=== PATIENT | female | born 1935 | race Caucasian/White ===

== ENCOUNTER 2017-11-24 15:18 | Emergency (ER) | payer MEDICARE ==
[2017-11-24 18:59] LABS: AMMONIA < 10 uMOL/L (<32)
[2017-11-24 19:04] LABS: ACETAMINOPHEN LEVEL < 2.0 UG/ML (10.0-30.0); ALBUMIN 3.7 GM/DL (3.2-5.2); ALBUMIN/GLOBULIN RATIO 1.12 (1.00-1.93); ALKALINE PHOSPHATASE 97 U/L (45-117); ALT/SGPT 24 U/L (12-78); ANION GAP 6 MEQ/L (8-16); AST/SGOT 23 U/L (7-37); BILIRUBIN,DIRECT < 0.1 MG/DL (0.0-0.2); BILIRUBIN,TOTAL 0.3 MG/DL (0.2-1.0); BLOOD UREA NITROGEN 26 MG/DL (7-18); CALCIUM LEVEL 8.5 MG/DL (8.8-10.2); CARBON DIOXIDE LEVEL 27 MEQ/L (21-32); CHLORIDE LEVEL 106 MEQ/L (98-107); CK-MB VALUE MASS 1.6 NG/ML (<3.6); CPK CREATINE PHOSPHOKINASE 59 U/L (26-192); CREATININE FOR GFR 0.81 MG/DL (0.55-1.30); GLOMERULAR FILTRATION RATE > 60.0 (>32); GLUCOSE, FASTING 85 MG/DL (70-100); MB/CK RELATIVE INDEX 2.71 (< OR =4); POTASSIUM SERUM 4.7 MEQ/L (3.5-5.1); SALICYLATE LEVEL < 1.7 MG/DL (5.0-30.0); SODIUM LEVEL 139 MEQ/L (136-145); TROPONIN I < 0.02 NG/ML (< 0.10)
[2017-11-24 19:07] LABS: AMORPHOUS SEDIMENT RFX SMALL (NEGATIVE); KETONE, URINE AUTO RFX NEGATIVE (NEGATIVE); LEUKOCYTE ESTERASE UR AUTO RFX NEGATIVE (NEGATIVE); NITRITE, URINE AUTO RFX NEGATIVE (NEGATIVE); RBC, URINE AUTO RFX 11 /HPF (0-3); SPECIFIC GRAVITY UR AUTO RFX 1.006 (1.002-1.035); SQUAM EPITHELIAL CELL UR AURFX 0 /HPF (0-6); WBC, URINE AUTO RFX 3 /HPF (0-3)
[2017-11-24 19:09] LABS: ETHYL ALCOHOL (ETHANOL) < 0.003 % (0.000-0.010)
[2017-11-24 19:26] LABS: AMPHETAMINES LEVEL URINE NEGATIVE (NEGATIVE); BARBITURATES URINE NEGATIVE (NEGATIVE); BENZODIAZEPINES URINE NEGATIVE (NEGATIVE); CANNABINOIDS URINE NEGATIVE (NEGATIVE); COCAINE METABOLITE URINE NEGATIVE (NEGATIVE); METHADONE URINE NEGATIVE (NEGATIVE); OPIATES URINE NEGATIVE (NEGATIVE); PHENCYCLIDINE URINE NEGATIVE (NEGATIVE)
== END 2017-11-24 19:47 | disposition home or self-care (01) ==
LOC: M ED 15:18
DX: F03.90 Unspecified dementia, unspecified severity, without behavioral disturbance, psychotic disturbance, mood disturbance, and anxiety (principal); I10 Essential (primary) hypertension; K21.9 Gastro-esophageal reflux disease without esophagitis; E07.9 Disorder of thyroid, unspecified; D64.9 Anemia, unspecified; Z79.899 Other long term (current) drug therapy; Z79.82 Long term (current) use of aspirin
CPT/HCPCS: 70450

== ENCOUNTER → 2017-12-11 | Outpatient (REF) | payer MEDICARE ==
[2017-12-11 16:15] LABS: ALBUMIN 3.6 GM/DL (3.2-5.2); ALBUMIN/GLOBULIN RATIO 1.13 (1.00-1.93); ALKALINE PHOSPHATASE 92 U/L (45-117); ALT/SGPT 24 U/L (12-78); ANION GAP 4 MEQ/L (8-16); AST/SGOT 19 U/L (7-37); BILIRUBIN,TOTAL 0.4 MG/DL (0.2-1.0); BLOOD UREA NITROGEN 26 MG/DL (7-18); CALCIUM LEVEL 8.5 MG/DL (8.8-10.2); CARBON DIOXIDE LEVEL 31 MEQ/L (21-32); CHLORIDE LEVEL 107 MEQ/L (98-107); CREATININE FOR GFR 0.78 MG/DL (0.55-1.30); FERRITIN 64 NG/ML (8-252); FREE T4 1.68 NG/DL (0.76-1.46); GLOMERULAR FILTRATION RATE > 60.0 (>32); GLUCOSE, FASTING 80 MG/DL (70-100); IRON (FE) 90 UG/DL (50-170); PERCENT SATURATION 28.9 % (13.2-45.0); SODIUM LEVEL 142 MEQ/L (136-145); THYROID STIMULATING HORMONE 0.032 uIU/ML (0.358-3.740); TOTAL IRON BINDING CAPACITY 311 UG/DL (250-450); TOTAL PROTEIN 6.8 GM/DL (6.4-8.2)
[2017-12-11 18:48] LABS: BASO # 0.1 10^3/uL (0.0-0.2); EOS # 0.1 10^3/uL (0.0-0.50); EOS % 2.3 % (0.0-3.0); HEMATOCRIT 48.1 % (36.0-47.0); HEMOGLOBIN 15.2 g/dl (12.0-15.5); IMMATURE GRANULOCYTE % 0.6 % (0-3.0); LYMPH # 0.9 10^3/uL (1.5-4.5); LYMPH % 18.9 % (24.0-44.0); MEAN CORPUSCULAR HGB CONC 31.6 g/dl (32.0-36.5); MEAN CORPUSCULAR VOLUME 88.7 fl (80.0-96.0); MONO # 0.6 10^3/uL (0.0-0.8); MONO % 11.3 % (0.0-5.0); NEUTROPHILS # 3.2 10^3/uL (1.8-7.7); NEUTROPHILS % 65.9 % (36.0-66.0); PLATELET COUNT, AUTOMATED 232 10^3/uL (150-450); RED BLOOD COUNT 5.42 10^6/uL (4.00-5.40); RED CELL DISTRIBUTION WIDTH 17.2 % (11.5-14.5); WHITE BLOOD COUNT 4.9 10^3/uL (4.0-10.0)
== END ==
LOC: M SFHCPLAZ 12:09
DX: D50.9 Iron deficiency anemia, unspecified (principal); E03.8 Other specified hypothyroidism; I69.319 Unspecified symptoms and signs involving cognitive functions following cerebral infarction
CPT/HCPCS: 83550

== ENCOUNTER → 2018-01-05 | Outpatient (CLI) | payer MEDICARE | LOC: M WHC 14:15 | DX: E83.51 Hypocalcemia (principal); M81.0 Age-related osteoporosis without current pathological fracture | CPT/HCPCS: 77080 ==

== ENCOUNTER → 2018-02-26 | Outpatient (REF) | payer MEDICARE ==
[2018-02-26 12:44] LABS: FREE T4 1.63 NG/DL (0.76-1.46); THYROID STIMULATING HORMONE 0.017 uIU/ML (0.358-3.740)
== END ==
LOC: M SFHCPLAZ 08:40
DX: E03.8 Other specified hypothyroidism (principal)
CPT/HCPCS: 84443

== ENCOUNTER → 2018-04-19 | Outpatient (REF) | payer MEDICARE, MEDICAID ==
[2018-04-19 16:10] LABS: BASO % 0.7 % (0.0-1.0); EOS # 0.2 10^3/uL (0.0-0.50); EOS % 2.7 % (0.0-3.0); HEMATOCRIT 48.6 % (36.0-47.0); HEMOGLOBIN 15.4 g/dl (12.0-15.5); IMMATURE GRANULOCYTE % 0.5 % (0-3.0); LYMPH # 0.8 10^3/uL (1.5-4.5); LYMPH % 14.7 % (24.0-44.0); MEAN CORPUSCULAR HEMOGLOBIN 29.1 pg (27.0-33.0); MEAN CORPUSCULAR HGB CONC 31.7 g/dl (32.0-36.5); MEAN CORPUSCULAR VOLUME 91.9 fl (80.0-96.0); MONO # 0.6 10^3/uL (0.0-0.8); MONO % 10.9 % (0.0-5.0); NEUTROPHILS # 3.9 10^3/uL (1.8-7.7); NEUTROPHILS % 70.5 % (36.0-66.0); PLATELET COUNT, AUTOMATED 228 10^3/uL (150-450); RED BLOOD COUNT 5.29 10^6/uL (4.00-5.40); RED CELL DISTRIBUTION WIDTH 13.4 % (11.5-14.5); WHITE BLOOD COUNT 5.6 10^3/uL (4.0-10.0)
[2018-04-19 16:18] LABS: ALBUMIN 3.4 GM/DL (3.2-5.2); ALKALINE PHOSPHATASE 107 U/L (45-117); ALT/SGPT 27 U/L (12-78); ANION GAP 6 MEQ/L (8-16); AST/SGOT 24 U/L (7-37); BILIRUBIN,TOTAL 0.4 MG/DL (0.2-1.0); BLOOD UREA NITROGEN 23 MG/DL (7-18); CALCIUM LEVEL 7.9 MG/DL (8.8-10.2); CARBON DIOXIDE LEVEL 30 MEQ/L (21-32); CHLORIDE LEVEL 107 MEQ/L (98-107); CREATININE FOR GFR 0.87 MG/DL (0.55-1.30); GLOMERULAR FILTRATION RATE > 60.0 (>32); GLUCOSE, FASTING 76 MG/DL (70-100); INR 0.93; POTASSIUM SERUM 4.6 MEQ/L (3.5-5.1); PROTHROMBIN TIME 12.5 SECONDS (12.1-14.4); SODIUM LEVEL 143 MEQ/L (136-145); TOTAL PROTEIN 6.8 GM/DL (6.4-8.2)
[2018-04-19 16:19] LABS: PARTIAL THROMBOPLASTIN TIME 30.5 SECONDS (25.4-37.6)
== END ==
LOC: M SFHCPLAZ 12:22
DX: Z01.818 Encounter for other preprocedural examination (principal); H26.9 Unspecified cataract
CPT/HCPCS: 80053

== ENCOUNTER → 2018-05-28 | Outpatient (REF) | payer MEDICARE, MEDICAID ==
[2018-05-28 12:08] LABS: FREE T4 1.47 NG/DL (0.76-1.46); THYROID STIMULATING HORMONE 0.799 uIU/ML (0.358-3.740)
== END ==
LOC: M SFHCPLAZ 08:13
DX: E03.8 Other specified hypothyroidism (principal)
CPT/HCPCS: 84443

== ENCOUNTER 2018-06-01 19:21 | Emergency (ER) | payer MEDICARE, MEDICAID ==
[~2018-06-01] VITALS: Ht 157.5 cm; Wt 77.3 kg
[~2018-06-01 19:21] MED LIST: ASPI1TAB PO; FERR22EL PO; LEVO100T5 PO; OMEP20CA3 PO
[2018-06-01] MEDS ORDERED: D 50CAP PO (20:08)
[2018-06-01] MEDS ORDERED: RISP2TAB32 (20:08)
[2018-06-01 21:49] VITALS: BP 132/82
== END 2018-06-01 21:50 | disposition home or self-care (01) ==
LOC: M ED 19:21
DX: F43.0 Acute stress reaction (principal); E03.9 Hypothyroidism, unspecified; Z91.14 Patient's other noncompliance with medication regimen
CPT/HCPCS: 36415; 80053; 82728; 83550; 84439; 84443; 85025; 99284; G0463

== ENCOUNTER → 2018-06-01 | Outpatient (REF) | payer MEDICARE, MEDICAID ==
[2018-06-01 15:50] LABS: BASO # 0.1 10^3/uL (0.0-0.2); BASO % 0.8 % (0.0-1.0); EOS # 0.1 10^3/uL (0.0-0.50); EOS % 1.6 % (0.0-3.0); HEMATOCRIT 43.2 % (36.0-47.0); HEMOGLOBIN 14.2 g/dl (12.0-15.5); IMMATURE GRANULOCYTE % 0.6 % (0-3.0); LYMPH % 15.3 % (24.0-44.0); MEAN CORPUSCULAR HEMOGLOBIN 29.6 pg (27.0-33.0); MEAN CORPUSCULAR HGB CONC 32.9 g/dl (32.0-36.5); MONO # 0.8 10^3/uL (0.0-0.8); MONO % 12.4 % (0.0-5.0); NEUTROPHILS # 4.4 10^3/uL (1.8-7.7); NEUTROPHILS % 69.3 % (36.0-66.0); PLATELET COUNT, AUTOMATED 192 10^3/uL (150-450); RED CELL DISTRIBUTION WIDTH 13.4 % (11.5-14.5); WHITE BLOOD COUNT 6.3 10^3/uL (4.0-10.0)
[2018-06-01 16:27] LABS: ALBUMIN 3.4 GM/DL (3.2-5.2); ALKALINE PHOSPHATASE 104 U/L (45-117); ALT/SGPT 20 U/L (12-78); ANION GAP 9 MEQ/L (8-16); AST/SGOT 16 U/L (7-37); BILIRUBIN,TOTAL 0.3 MG/DL (0.2-1.0); BLOOD UREA NITROGEN 28 MG/DL (7-18); CALCIUM LEVEL 8.2 MG/DL (8.8-10.2); CARBON DIOXIDE LEVEL 27 MEQ/L (21-32); CHLORIDE LEVEL 107 MEQ/L (98-107); CREATININE FOR GFR 1.03 MG/DL (0.55-1.30); FERRITIN 14 NG/ML (8-252); FREE T4 1.25 NG/DL (0.76-1.46); GLOMERULAR FILTRATION RATE 54.6 (>32); GLUCOSE, FASTING 74 MG/DL (70-100); IRON (FE) 56 UG/DL (50-170); PERCENT SATURATION 17.5 % (13.2-45.0); POTASSIUM SERUM 4.7 MEQ/L (3.5-5.1); SODIUM LEVEL 143 MEQ/L (136-145); THYROID STIMULATING HORMONE 0.466 uIU/ML (0.358-3.740); TOTAL IRON BINDING CAPACITY 320 UG/DL (250-450); TOTAL PROTEIN 6.5 GM/DL (6.4-8.2)
== END ==
LOC: M SFHCPLAZ 14:46
DX: E03.8 Other specified hypothyroidism (principal); E83.51 Hypocalcemia; D50.9 Iron deficiency anemia, unspecified
CPT/HCPCS: 83550

== ENCOUNTER → 2018-07-19 | Outpatient (REF) | payer MEDICARE, MEDICAID ==
[~2018-07-19] MED LIST changes: +CALC500T36 PO; +CLAR1TAB2 PO; +D 50CAP PO; +RISP2TAB32; +SYNT75TA PO; +WAL-100S PO
[2018-07-19 14:02] LABS: HEMATOCRIT 40.2 % (36.0-47.0); HEMOGLOBIN 12.6 g/dl (12.0-15.5); MEAN CORPUSCULAR HEMOGLOBIN 28.5 pg (27.0-33.0); MEAN CORPUSCULAR HGB CONC 31.3 g/dl (32.0-36.5); PLATELET COUNT, AUTOMATED 260 10^3/uL (150-450); RED BLOOD COUNT 4.42 10^6/uL (4.00-5.40); WHITE BLOOD COUNT 5.9 10^3/uL (4.0-10.0)
[2018-07-19 14:17] LABS: BLOOD UREA NITROGEN 17 MG/DL (7-18); CALCIUM LEVEL 8.4 MG/DL (8.8-10.2); CARBON DIOXIDE LEVEL 27 MEQ/L (21-32); CHLORIDE LEVEL 104 MEQ/L (98-107); GLOMERULAR FILTRATION RATE > 60.0 (>32); GLUCOSE, FASTING 100 MG/DL (70-100); POTASSIUM SERUM 4.6 MEQ/L (3.5-5.1); SODIUM LEVEL 140 MEQ/L (136-145)
== END ==
LOC: M SFHCPLAZ 12:55
PROVIDERS: ATTEND Family Medicine
DX: D50.9 Iron deficiency anemia, unspecified (principal); E83.51 Hypocalcemia; E03.9 Hypothyroidism, unspecified
CPT/HCPCS: 36415; 80048; 84443; 85027; G0463

== ENCOUNTER 2018-07-30 11:30 | Inpatient (IN) | payer MEDICARE, MEDICAID ==
[~2018-07-30] VITALS: Ht 157.5 cm; Wt 85.8 kg
[~2018-07-30 11:30] MED LIST changes: -CALC500T36 PO; -CLAR1TAB2 PO; -SYNT75TA PO; -WAL-100S PO
[2018-07-30 12:21] LABS: BASO % 0.6 % (0.0-1.0); EOS % 0.1 % (0.0-3.0); HEMOGLOBIN 9.7 g/dl (12.0-15.5); LYMPH # 0.6 10^3/uL (1.5-4.5); LYMPH % 8.8 % (24.0-44.0); MEAN CORPUSCULAR HEMOGLOBIN 28.7 pg (27.0-33.0); MEAN CORPUSCULAR HGB CONC 32.3 g/dl (32.0-36.5); MEAN CORPUSCULAR VOLUME 88.8 fl (80.0-96.0); MONO # 0.7 10^3/uL (0.0-0.8); MONO % 9.7 % (0.0-5.0); NEUTROPHILS # 5.4 10^3/uL (1.8-7.7); NEUTROPHILS % 79.5 % (36.0-66.0); PLATELET COUNT, AUTOMATED 260 10^3/uL (150-450); RED BLOOD COUNT 3.38 10^6/uL (4.00-5.40); WHITE BLOOD COUNT 6.8 10^3/uL (4.0-10.0)
[2018-07-30 12:49] LABS: INR 0.95; PROTHROMBIN TIME 12.8 SECONDS (12.1-14.4)
[2018-07-30 12:49] LABS: ALBUMIN 3.3 GM/DL (3.2-5.2); ALT/SGPT 21 U/L (12-78); AMYLASE 72 U/L (25-115); BILIRUBIN,DIRECT < 0.1 MG/DL (0.0-0.2); BILIRUBIN,TOTAL 0.3 MG/DL (0.2-1.0); BLOOD UREA NITROGEN 18 MG/DL (7-18); CALCIUM LEVEL 8.4 MG/DL (8.8-10.2); CARBON DIOXIDE LEVEL 25 MEQ/L (21-32); CHLORIDE LEVEL 107 MEQ/L (98-107); CREATININE FOR GFR 0.86 MG/DL (0.55-1.30); GLOMERULAR FILTRATION RATE > 60.0 (>32); GLUCOSE, FASTING 112 MG/DL (70-100); LIPASE 105 U/L (73-393); POTASSIUM SERUM 4.6 MEQ/L (3.5-5.1); SODIUM LEVEL 139 MEQ/L (136-145)
[2018-07-30 12:50] LABS: PARTIAL THROMBOPLASTIN TIME 26.4 SECONDS (25.4-37.6)
--- NOTE | 2018-07-30 12:59 | REP ---
Portable chest x-ray: Single view. History: Weakness. No comparison study. Findings: The lungs are symmetrically aerated and clear. Right hemidiaphragm is slightly elevated. Pleural angles are sharp. Heart size is normal. There is evidence of moderate size hiatal hernia behind the heart. Pulmonary vasculature is not increased. No significant bony abnormality. Impression: Findings consistent with a moderate size hiatal hernia. Otherwise no acute disease. Electronically Signed by Augie Partida MD 07/30/2018 01:35 P
[2018-07-30] MEDS ORDERED: PANTOPRAZOLE 40MG INJ (PROTONIX) (C9113) IV ONE (13:00)
[2018-07-30 13:21] LABS: CPK CREATINE PHOSPHOKINASE 77 U/L (26-192); MB/CK RELATIVE INDEX 1.95 (< OR =4); TROPONIN I < 0.02 NG/ML (< 0.10)
--- NOTE | 2018-07-30 13:35 | REP ---
Clinical: Trauma. Comparison: 11/24/2017 . Findings: Age-related atrophy and microvascular ischemic changes are appreciated. The ventricles and sulci are symmetric. Law-white differentiation is maintained. There is no evidence for acute intracranial hemorrhage, mass/mass effect, pathology or infarction. No extra-axial fluid collection. Calvarium is intact. Paranasal sinuses and mastoid air cells are clear. Impression: Age related atrophy and microvascular ischemic changes. No acute intracranial hemorrhage, infarction, or mass/mass effect. Electronically Signed by Gurvinder Villa MD 07/30/2018 01:28 P
--- NOTE | 2018-07-30 13:40 | REP ---
Clinical: Trauma. Technique: Axial noncontrast images from the skull base to the thoracic inlet with coronal and sagittal re-formations. Comparison: None. Findings: Alignment is maintained and there is no evidence for acute fracture / compression injury or subluxation. Moderate to advanced multilevel degenerative changes include endplate sclerosis, osteophytosis and disc space narrowing. Findings most pronounced at C6-7 and C5-6. Spinal canal appears patent and without stenosis. The posterior elements and spinous processes are intact. The neural foramen appear patent. Paravertebral soft tissues are normal. Impression: Moderate to advanced multilevel spondylosis. No acute fracture / compression injury or subluxation. Electronically Signed by Gurvinder Villa MD 07/30/2018 01:32 P
[2018-07-30] MEDS ORDERED: WAL-100S PO (14:18)
[2018-07-30] MEDS ORDERED: CALC500T36 PO (14:18)
[2018-07-30] MEDS ORDERED: CLAR1TAB2 PO (14:18)
[2018-07-30] MEDS ORDERED: SYNT75TA PO (14:18)
[2018-07-30] MEDS: NS 1,000 ML IV SCH ×2 (14:26→19:58)
[2018-07-30] MEDS ORDERED: MAGNESIUM CITRATE 300 ML BTL PO ONE (17:15)
[2018-07-30] MEDS ORDERED: GOLYTELY SOLN 4000 ML BTL PO ONE (17:15)
--- NOTE | 2018-07-30 17:38 | HPE ---
DATE OF ADMISSION: 07/30/2018 82-year-old female who recently moved to [place] from [place] with a past medical history of gastric ulcer, status post PrevPac therapy, presents to the emergency room with complaint of black, tarry stool for the last week. She denied any chest pain, vertigo, palpitations associated with this; however, yesterday she was taking a shower and when she came out she felt very dizzy and had a syncopal event and hit her head on the toilet. She has never had a similar episode in the past. In the emergency room, her vitals were stable. Blood pressure 108/59, pulse 63. She had a CT scan of her cervical spine and head, which were all normal. 12-lead electrocardiogram (EKG) showed no acute ST-T abnormalities. Dr. Savage, gastroenterology, has been spoken to by our emergency room staff and will see the patient in the morning. She will be admitted for further management. PAST MEDICAL HISTORY: 1. Gastric ulcer, status post PrevPac therapy 2 years ago in [place]. 2. History of hypothyroidism. 3. Gastroesophageal reflux disease (GERD). ALLERGIES: She has no known drug allergies. FAMILY HISTORY: Noncontributory. SOCIAL HISTORY: The patient denies tobacco, alcohol or illicit drugs. MEDICATIONS: She takes at home: - aspirin 81 mg by mouth daily - cholecalciferol 5000 units by mouth at bedtime - Synthroid 75 mcg by mouth daily - loratadine 10 mg by mouth daily - omeprazole 20 mg by mouth at bedtime - oyster shell calcium 500 mg by mouth twice a day - Tussin 100 mg by mouth as needed REVIEW OF SYSTEMS: Negative for all ten major systems except what is mentioned in the history of present illness. PHYSICAL EXAMINATION VITAL SIGNS: Blood pressure 128/61, heart rate 64 and regular, respiratory rate is 16, temperature is 98.1, oxygen saturation 100% on room air. Head is atraumatic, normocephalic. Neck is supple with no jugular venous distention (JVD). Lungs clear to auscultation. S1, S2 audible. No murmurs appreciated. Abdomen is soft. Positive bowel sounds. No pedal edema. Skin: Intact. Neurologic examination, the patient is awake, alert and oriented times three. LABORATORIES: Sodium 139, potassium 4.6, chloride 107, CO2 is 25, BUN 18, creatinine 0.6, glucose is 112. Troponin first set is less than 0.02, lipase 105, WBC 6.8, hemoglobin 9.7, hematocrit 30, platelets 260,000. INR is 0.95. IMPRESSION: 1. Upper gastrointestinal bleed. 2. Syncope. PLAN: The patient is admitted to medical/surgical floor with telemetry. We will rule out acute coronary syndrome with an echocardiogram. The patient should see a business machine mechanic as an outpatient. I feel this syncopal event is likely secondary to the slow blood loss from the gastrointestinal tract. At this time, there is no need for packed red blood cell transfusion. We will monitor hemoglobin and hematocrit and trend. Dr. Savage has been consulted and will see the patient in the morning. I am going to start her on Protonix IV push twice a day at 40 mg. I will hold her medications except for Synthroid for now. We will continue her care in the medical/surgical floor.
[2018-07-30 18:30] VITALS: BP 137/58
[2018-07-30 20:00] VITALS: BP 129/97
[2018-07-30] MEDS ORDERED: ONDANSETRON 4MG/2ML VIAL (J2405) IV PRN (23:30)
[2018-07-30 23:57] VITALS: BP 121/71
[2018-07-31] VITALS: BP 121/71
[2018-07-31] MEDS: PANTOPRAZOLE 40MG INJ (PROTONIX) (C9113) IV SCH ×2 (02:07→12:03)
[2018-07-31 04:00] VITALS: BP_SYST 122; BP_DIAS 68; BP_DIAS 74
[2018-07-31] MEDS ORDERED: GOLYTELY SOLN 4000 ML BTL PO ONE (05:00)
[2018-07-31 05:27] LABS: BASO % 0.5 % (0.0-1.0); EOS # 0.1 10^3/uL (0.0-0.50); EOS % 1.4 % (0.0-3.0); HEMATOCRIT 25.1 % (36.0-47.0); LYMPH # 0.9 10^3/uL (1.5-4.5); LYMPH % 13.2 % (24.0-44.0); MEAN CORPUSCULAR HEMOGLOBIN 28.1 pg (27.0-33.0); MEAN CORPUSCULAR HGB CONC 31.9 g/dl (32.0-36.5); MEAN CORPUSCULAR VOLUME 88.1 fl (80.0-96.0); MONO # 0.6 10^3/uL (0.0-0.8); MONO % 9.6 % (0.0-5.0); NEUTROPHILS % 74.5 % (36.0-66.0); PLATELET COUNT, AUTOMATED 201 10^3/uL (150-450); RED BLOOD COUNT 2.85 10^6/uL (4.00-5.40); WHITE BLOOD COUNT 6.7 10^3/uL (4.0-10.0)
[2018-07-31 05:46] LABS: BLOOD UREA NITROGEN 13 MG/DL (7-18); CARBON DIOXIDE LEVEL 27 MEQ/L (21-32); CHLORIDE LEVEL 109 MEQ/L (98-107); CREATININE FOR GFR 0.74 MG/DL (0.55-1.30); GLOMERULAR FILTRATION RATE > 60.0 (>32); GLUCOSE, FASTING 95 MG/DL (70-100); POTASSIUM SERUM 4.3 MEQ/L (3.5-5.1); SODIUM LEVEL 141 MEQ/L (136-145)
[2018-07-31] MEDS: NS 1,000 ML IV SCH ×2 (06:05→15:40)
[2018-07-31] MEDS: LEVOTHYROXINE 75MCG TABLET (0.075MG) PO SCH (06:05)
[2018-07-31 08:00] VITALS: BP 120/70
[2018-07-31 12:00] VITALS: BP 120/62
[2018-07-31 13:32] LABS: HEMATOCRIT 25.3 % (36.0-47.0); HEMOGLOBIN 7.9 g/dl (12.0-15.5)
--- NOTE | 2018-07-31 14:08 | IPN ---
DATE OF VISIT: 07/31/2018 SUBJECTIVE: Patient is seen and examined in the room today. The patient is in the process of getting a bowel prep. The patient presented to [facility] with complaint of black tarry stool. The patient did have a history of gastric ulcer status post Prevpac therapy several years ago. The patient stated she may skipped some of the medications recently. When asked the patient specifically what medication, the patient stated she does not remember. But she thinks that it was the medication for her gastric ulcers. OBJECTIVE: VITAL SIGNS: Temperature 97.6, pulse 70, respirations 18, blood pressure 120/70, pulse oximetry is 98% in room air. GENERAL: Patient is alert and awake, comfortable. HEENT: Normocephalic, atraumatic. Extraocular motors grossly intact. CARDIOVASCULAR: Positive S1 and S2. Regular rate. LUNGS: Clear to auscultation bilaterally. ABDOMEN: Soft, nontender, nondistended. Bowel sounds present. EXTREMITIES: No edema. LABORATORY DATA: WBC is 6.7, hemoglobin 8, hematocrit 25.1, platelet count is 201, sodium is 141, potassium 4.3, chloride is 109, carbon dioxide 27, BUN 13, creatinine 0.74, GFR 60, fasting glucose 95, calcium is 7. ASSESSMENT/PLAN: 1. Acute blood loss anemia. The patient came to [facility] with a gastrointestinal (GI) bleed. The patient received bowel prep. GI specialist Dr. Savage has been consulted. Currently the patient is nothing by mouth. The patient is on IV Protonix every 12 hours. The patient is on IV support. 2. History of gastric ulcer status post Prevpac therapy a few years ago in [place]. Currently patient is on IV Protonix for the GI bleed. 3. Hypothyroidism. Patient is nothing by mouth. On Synthroid. 4. Deep vein thrombosis (DVT) prophylaxis. Thromboembolic deterrent stockings (TEDS) and sequential compression. MTDD
[2018-07-31 16:00] VITALS: BP 120/62
--- NOTE | 2018-07-31 16:56 | ECHO ---
DATE OF PROCEDURE: 07/31/2018 REFERRING PHYSICIAN: Anyi Garcia INDICATION: Syncope. Height 157 cm Weight 81 kg. DIMENSIONS: IVS 1.0 LV 4.3 LVPW1.0 LA 4.3 Aorta 2.5 IVC 1.8 Left atrium volume index 28 Mitral E wave velocity 93, A-wave 115 E prime septal 6.4, E prime lateral 6.8 FINDINGS: The study is of acceptable technical quality. Left ventricle is of normal size and systolic function with estimated LVEF 60-65%. Right ventricle is also normal size and systolic function. Left atrium is mildly enlarged. Right atrium appears grossly normal. Aortic valve is trileaflet valve. It is mildly sclerotic but mobility is preserved. There are also mild degenerative abnormalities of mitral valve. Tricuspid and pulmonic valves appear normal. No pericardial effusion is noted. Inferior vena cava is normal size. Aortic root and aortic arch appear normal. Abdominal aorta was not well seen. Doppler interrogation reveals no aortic stenosis and trace insufficiency. There is mild mitral insufficiency and probably moderate tricuspid insufficiency. Calculated pulmonary artery pressure is around 40 mmHg corresponding to mild to moderate pulmonary hypertension. Pulmonic valve is functionally competent. Mitral inflow pattern and tissue Doppler velocities of mitral annulus reveal grade 1 diastolic dysfunction. CONCLUSIONS: 1. Study is of acceptable technical quality. 2. Normal LV size with preserved LV systolic function and grade 1 diastolic dysfunction. 3. Aortic sclerosis with no stenosis and trace insufficiency. 4. Mild mitral insufficiency. 5. Moderate tricuspid insufficiency. 6. Likely normal central venous pressure and mild to moderate pulmonary hypertension. COMMENT: SBE prophylaxis is not indicated. No findings to explain syncopal event. MTDD
[2018-07-31] MEDS ORDERED: MIRALAX POWDER 255 GM BTL (POLYETHYLENE GLYCOL) PO ONE (17:00)
[2018-07-31] MEDS ORDERED: POLYVINYL ALCOHOL OPHTH SOLN 15 ML(LIQUITEARS) OU PRN (18:15)
[2018-07-31 19:58] LABS: HEMATOCRIT 26.9 % (36.0-47.0); HEMOGLOBIN 8.1 g/dl (12.0-15.5)
[2018-07-31 20:00] VITALS: BP 138/64
--- NOTE | 2018-07-31 21:02 | ECGEPIP ---
Stationary ECG Study [facility] - ED Test Date: 2018-07-30 Pat Name: SHYLA KAY Department: Room: - Gender: F Oriental Medicine Practitioner: TC : 1935 Requested By: MARILYN Farah Order Number: [id number] Reading MD: Josh Avalos Measurements Intervals [place] Rate: 68 P: 4 MS: 141 QRS: 2 QRSD: 78 T: 25 QT: 392 QTc: 418 Interpretive Statements SINUS RHYTHM NO PRIORS FOR COMPARISON Electronically Signed On 07-31-2018 21:01:54 EST by Josh Avalos
[2018-08-01] VITALS (7 sets, daily range): BP systolic 117–158; BP diastolic 55–77
[2018-08-01] MEDS: PANTOPRAZOLE 40MG INJ (PROTONIX) (C9113) IV SCH ×2 (01:08→15:05)
[2018-08-01] MEDS: NS 1,000 ML IV SCH ×2 (01:10→15:05)
[2018-08-01] MEDS ORDERED: MIRALAX POWDER 255 GM BTL (POLYETHYLENE GLYCOL) PO ONE (05:00)
[2018-08-01 05:40] LABS: HEMATOCRIT 24.2 % (36.0-47.0); HEMOGLOBIN 7.5 g/dl (12.0-15.5); MEAN CORPUSCULAR HEMOGLOBIN 27.8 pg (27.0-33.0); MEAN CORPUSCULAR VOLUME 89.6 fl (80.0-96.0); PLATELET COUNT, AUTOMATED 204 10^3/uL (150-450); WHITE BLOOD COUNT 4.5 10^3/uL (4.0-10.0)
[2018-08-01 06:01] LABS: BLOOD UREA NITROGEN 11 MG/DL (7-18); CALCIUM LEVEL 6.9 MG/DL (8.8-10.2); CARBON DIOXIDE LEVEL 25 MEQ/L (21-32); CHLORIDE LEVEL 112 MEQ/L (98-107); CREATININE FOR GFR 0.76 MG/DL (0.55-1.30); GLOMERULAR FILTRATION RATE > 60.0 (>32); GLUCOSE, FASTING 84 MG/DL (70-100); MAGNESIUM LEVEL 1.9 MG/DL (1.8-2.4); SODIUM LEVEL 144 MEQ/L (136-145)
[2018-08-01] MEDS: LEVOTHYROXINE 75MCG TABLET (0.075MG) PO SCH (06:03)
[2018-08-01] MEDS ORDERED: PREVNAR 13 VACCINE SYRINGE (CPT CODE:90670) IM ONE (09:00)
[2018-08-01] MEDS ORDERED: LIDOCAINE 2% INJ 100 MG/5 ML SDV (FOR ANES.) As Ordered ONE (11:54)
[2018-08-01] MEDS ORDERED: PROPOFOL 200 MG/20 ML VIAL As Ordered ONE ×2 (11:54→13:00)
--- NOTE | 2018-08-01 13:29 | ROOR ---
Patient Name: Rhoda Coates Procedure Date: 08/01/2018 12:35 PM Date of : 1935 Age: 82 Room: Main OR Gender: Female Note Status: Finalized Procedure: Upper GI endoscopy Indications: Acute post hemorrhagic anemia, Iron deficiency anemia secondary to chronic blood loss Providers: Andre VALERIO MD Referring MD: 2. Inpatient 2. Inpatient Requesting Provider: Medicines: Monitored Anesthesia Care Complications: No immediate complications. Procedure: Pre-Anesthesia Assessment: - The heart rate, respiratory rate, oxygen saturations, blood pressure, adequacy of pulmonary ventilation, and response to care were monitored throughout the procedure. The Endoscope was introduced through the mouth, and advanced to the third part of duodenum. The upper GI endoscopy was accomplished without difficulty. The patient tolerated the procedure well. Findings: A large hiatal hernia with a few Fabian erosions was found. Biopsies were taken with a cold forceps for histology. The exam was otherwise without abnormality. Impression: - Moderate to Large hiatal hernia with a few linear Fabian erosions at the waist. Biopsied. - The examination was otherwise normal to third portion of duodenum. Recommendation: - Upper GI tract reveals no source for ACUTE blood loss, however camerons erosions may cause CHRONIC anemia/iron deficit. - Use Prilosec (omeprazole) 40 mg PO daily indefinitely. - Recommend an iron supplement indefinitely. Andre Valerio MD Andre VALERIO MD 08/01/2018 1:28:34 PM This report has been signed electronically. Number of Addenda: 0 Note Initiated On: 08/01/2018 12:35 PM Estimated Blood Loss: Estimated blood loss: none.
--- NOTE | 2018-08-01 13:40 | ROOR ---
Patient Name: Rhoda Coates Procedure Date: 08/01/2018 12:34 PM Date of : 1935 Age: 82 Room: Main OR Gender: Female Note Status: Finalized Procedure: Colonoscopy Indications: Acute post hemorrhagic anemia, Iron deficiency anemia secondary to chronic blood loss Providers: Andre VALERIO MD Referring MD: 2. Inpatient 2. Inpatient Requesting Provider: Medicines: Monitored Anesthesia Care Complications: No immediate complications. Procedure: Pre-Anesthesia Assessment: - The heart rate, respiratory rate, oxygen saturations, blood pressure, adequacy of pulmonary ventilation, and response to care were monitored throughout the procedure. The Colonoscope was introduced through the anus and advanced to 15 cm into the ileum. The colonoscopy was performed without difficulty. The patient tolerated the procedure well. The quality of the bowel preparation was excellent. Findings: The perianal and digital rectal examinations were normal. Multiple small and large-mouthed diverticula were found in the sigmoid colon. Internal hemorrhoids were found during retroflexion. The hemorrhoids were medium-sized. Retroflexion in the right colon was performed. The terminal ileum appeared normal. Impression: - Mild to moderate diverticulosis in the sigmoid colon. - Internal hemorrhoids. - The colon is otherwise normal. - The examined portion of the ileum (15 cm) was normal. - No specimens collected. Recommendation: - On this colonoscopy no source for CHRONIC GI blood loss is found, however her symptoms of dark bloody/maroon stool in/on toilet (per caregiver), suggests the probability of a diverticular bleed that has stopped at this time. - Monitor H&H as outpatient. For recurrent/persistent anemia would consider outpatient capsule enteroscopy. - [facility] care. - Advance diet as tolerated. Andre Valerio MD Andre VALERIO MD 08/01/2018 1:40:19 PM This report has been signed electronically. Number of Addenda: 0 Note Initiated On: 08/01/2018 12:34 PM Estimated Blood Loss: Estimated blood loss: none.
[2018-08-01] MEDS ORDERED: ONDANSETRON 4MG/2ML VIAL (J2405) IV PRN (13:45)
[2018-08-01] MEDS ORDERED: LR 1,000 ML IV SCH (13:45)
--- NOTE | 2018-08-01 16:37 | IPNPDOC ---
Text Note Date of Service The patient was seen on 08/01/18. NOTE SUBJECTIVE: Patient is seen and examined in the room today. Patient agrees for blood transfusion. Patient states no blood was seen in her bowel movements when she was going through the bowel prep. OBJECTIVE: VITAL SIGNS: Listed below. GENERAL: Patient is alert and awake, comfortable. HEENT: Normocephalic, atraumatic. Extraocular motors grossly intact. CARDIOVASCULAR: Positive S1 and S2. Regular rate. LUNGS: Clear to auscultation bilaterally. ABDOMEN: Soft, nontender, nondistended. Bowel sounds present. EXTREMITIES: No edema. LABORATORY DATA: Listed below. ASSESSMENT/PLAN: #. Acute blood loss anemia. - The patient received bowel prep. GI specialist Dr. Savage has been consulted. Scheduled EGD and colonoscopy on 08/01/18. #. History of gastric ulcer - status post Prevpac therapy a few years ago in [place]. on PPI. #. Hypothyroidism. - On Synthroid. TSH in normal range. #. Deep vein thrombosis (DVT) prophylaxis. - Thromboembolic deterrent stockings (TEDS) and sequential compression. VS,Fishbone, I+O VS, Fishbone, I+O Laboratory Tests 07/31/18 19:03 08/01/18 05:17 Red Blood Count 2.70 L, Mean Corpuscular Volume 89.6, Mean Corpuscular Hemoglobin 27.8, Mean Corpuscular Hemoglobin Concent 31.0 L, Red Cell Distribution Width 13.8, Calcium Level 6.9 L Vital Signs Date Time Temp Pulse Resp B/P (MAP) Pulse Ox O2 Delivery O2 Flow Rate FiO2 08/01/18 14:30 97.5 54 18 125/61 (82) 97 08/01/18 13:50 Room Air 08/01/18 13:23 10 I&O- Last 24 Hours up to 6 AM 08/01/18 06:00 Intake Total 2370 ml Output Total 760 ml Balance 1610 ml BOONE HOPSON DO Aug 01, 2018 16:37
[2018-08-01 18:45] LABS: HEMATOCRIT 29.6 % (36.0-47.0); HEMOGLOBIN 9.2 g/dl (12.0-15.5)
[2018-08-02] MEDS: NS 1,000 ML IV SCH (00:43)
[2018-08-02 04:00] VITALS: BP 132/61
[2018-08-02] MEDS: LEVOTHYROXINE 75MCG TABLET (0.075MG) PO SCH (05:15)
[2018-08-02 05:56] LABS: HEMATOCRIT 27.7 % (36.0-47.0); HEMOGLOBIN 8.6 g/dl (12.0-15.5); MEAN CORPUSCULAR HEMOGLOBIN 27.3 pg (27.0-33.0); MEAN CORPUSCULAR VOLUME 87.9 fl (80.0-96.0); PLATELET COUNT, AUTOMATED 202 10^3/uL (150-450); RED BLOOD COUNT 3.15 10^6/uL (4.00-5.40); WHITE BLOOD COUNT 7.6 10^3/uL (4.0-10.0)
[2018-08-02 06:15] LABS: BLOOD UREA NITROGEN 7 MG/DL (7-18); CARBON DIOXIDE LEVEL 25 MEQ/L (21-32); CHLORIDE LEVEL 113 MEQ/L (98-107); GLOMERULAR FILTRATION RATE > 60.0 (>32); GLUCOSE, FASTING 80 MG/DL (70-100); POTASSIUM SERUM 3.6 MEQ/L (3.5-5.1); SODIUM LEVEL 144 MEQ/L (136-145)
[2018-08-02 08:00] VITALS: BP 138/64
[2018-08-02] MEDS ORDERED: OMEP20CA3 PO (09:00)
[2018-08-02] MEDS ORDERED: OMEPRAZOLE 20 MG CAP PO SCH (09:00)
--- NOTE | 2018-08-02 19:15 | DSES ---
DATE OF ADMISSION: 07/30/2018 DATE OF DISCHARGE: 08/02/2018 PRIMARY CARE PROVIDER: Jacey Dejesus MD DISCHARGE DIAGNOSES: 1. Acute gastrointestinal (GI) blood loss anemia. 2. History of gastric ulcer, status post Prevpac therapy. 3. Hypothyroidism. 4. Enlarged hiatal hernia with a few Fabian erosions. 5. Mild to moderate diverticulosis. 6. Internal hemorrhoids. 7. Grade I diastolic dysfunction. 8. Moderate tricuspid insufficiency. 9. Mild to moderate pulmonary hypertension. HOSPITALIZATION COURSE: The patient is an 82-year-old female presented to [facility] on July 30, 2018 with complaint of black tarry stool. The patient admitted under the hospitalist service for acute gastrointestinal (GI) bleed and the patient had a syncopal event prior to hospitalization. The patient's hemoglobin and hematocrit is being followed closely. Gastrointestinal (GI) specialist consulted. The patient started nothing by mouth IV Protonix. The patient is to be receiving bowel prep. The patient was found to have a decreased hemoglobin and hematocrit when blood count obtained on August 01, 2018 with one pack red blood transfusion given to the patient. Later, the echocardiogram came back, results became available and discussed with the patient. The patient had a colonoscopy and endoscopy on August 01, 2018. The patient was found to have diverticulosis, internal hemorrhoids, hiatal hernia with linear Fabian erosion. After the procedure, the patient's diet advanced per recommendation. IV fluids discontinued after the patient was able to demonstrate good oral intake and the patient is also evaluation by physical therapy (PT) and the patient determined medically stable for discharge on August 02, 2018 with recommendation to followup with primary care provider, Jacey Dejesus, in one week. Vital signs on the day of discharge show temperature of 97.8, pulse 100, respirations 20, blood pressure is 138/64, pulse oximetry 98% on room air. LABORATORY DATA: White blood count (WBC) is 7.6, hemoglobin 8.6, hematocrit 37.7, platelet count is 202. Sodium is 144, potassium is 3.6, chloride is 113, carbon dioxide 25, BUN 7, creatinine is 0.8, glomerular filtration rate (GFR) greater than 60, fasting glucose 80, calcium is 7, magnesium 2. IMAGING STUDY: CT of the head without contrast demonstrated age related atrophy and microvascular ischemic changes. No acute intracranial hemorrhage, infarction or mass/mass effect. CT of the cervical spine without contrast demonstrated moderate to advanced multilevel spondylosis. No acute fracture/compression injury or subluxations. DISCHARGE MEDICATIONS: - omeprazole 40 mg by mouth daily - aspirin 81 mg by mouth at bedtime (q.h.s.) - vitamin D 5000 units by mouth at bedtime (q.h.s.) - Synthroid 75 mcg by mouth every a.m. - loratadine 10 mg by mouth daily as needed for allergies - calcium 500 mg by mouth twice a day - Wal-Tussin 500 mg by mouth twice a day for cough DISCHARGE INSTRUCTIONS: Discontinue line. Discharge home. Activity as tolerated. Diet as tolerated. The patient should follow with her primary care provider, Jacey Dejesus, in one week. DISCHARGE CONDITION: Fair. DISCHARGE TIME: Greater than 30 minutes.
== END 2018-08-02 12:33 | disposition home or self-care (01) | DRG 378 ==
LOC: M ED 11:30 → M ED INP 14:06 → M PCU 18:30
PROVIDERS: ADMIT Internal Medicine; ATTEND Internal Medicine
PROC: 0DJD8ZZ Inspection of Lower Intestinal Tract, Via Natural or Artificial Opening Endoscopic (ICD-10-PCS; 2018-08-01)
PROC: 30233N1 Transfusion of Nonautologous Red Blood Cells into Peripheral Vein, Percutaneous Approach (ICD-10-PCS; 2018-08-01)
PROC: 0DB68ZX Excision of Stomach, Via Natural or Artificial Opening Endoscopic, Diagnostic (ICD-10-PCS; principal; 2018-08-01 12:30)
DX: K57.31 Diverticulosis of large intestine without perforation or abscess with bleeding (principal); D62 Acute posthemorrhagic anemia; E03.9 Hypothyroidism, unspecified; K21.9 Gastro-esophageal reflux disease without esophagitis; R55 Syncope and collapse; K44.9 Diaphragmatic hernia without obstruction or gangrene; K64.8 Other hemorrhoids; I27.20 Pulmonary hypertension, unspecified; I36.1 Nonrheumatic tricuspid (valve) insufficiency; Z79.82 Long term (current) use of aspirin; Z79.899 Other long term (current) drug therapy

== ENCOUNTER → 2018-08-08 | Outpatient (REF) | payer MEDICARE, MEDICAID ==
[~2018-08-08] MED LIST changes: +CALC500T36 PO; +CLAR1TAB2 PO; +COLA100C5 PO; +FERR324T2 PO; +NEXI40CA PO; +OMEP40CA2 PO; +PANT40TA3 PO; +SYNT75TA PO; +WAL-100S PO
[2018-08-08 13:36] LABS: HEMATOCRIT 38.4 % (36.0-47.0); HEMOGLOBIN 11.8 g/dl (12.0-15.5); MEAN CORPUSCULAR HEMOGLOBIN 26.5 pg (27.0-33.0); MEAN CORPUSCULAR HGB CONC 30.7 g/dl (32.0-36.5); MEAN CORPUSCULAR VOLUME 86.1 fl (80.0-96.0); PLATELET COUNT, AUTOMATED 308 10^3/uL (150-450); RED BLOOD COUNT 4.46 10^6/uL (4.00-5.40); WHITE BLOOD COUNT 5.8 10^3/uL (4.0-10.0)
== END ==
LOC: M SFHCPLAZ 12:07
PROVIDERS: ATTEND Family Medicine
DX: D62 Acute posthemorrhagic anemia (principal)
CPT/HCPCS: 36415; 85027; 99496; G0463

== ENCOUNTER 2018-08-25 11:04 | Observation (INO) | payer MEDICARE, MEDICAID ==
[~2018-08-25] VITALS: Ht 157.5 cm; Wt 86.0 kg
[~2018-08-25 11:04] MED LIST changes: -COLA100C5 PO; -FERR324T2 PO; -NEXI40CA PO; -OMEP40CA2 PO; -PANT40TA3 PO
[2018-08-25] MEDS ORDERED: COLA100C5 PO (11:11)
[2018-08-25] MEDS ORDERED: FERR324T2 PO (11:11)
[2018-08-25] MEDS ORDERED: PANTOPRAZOLE 40MG INJ (PROTONIX) (C9113) IV ONE (11:45)
[2018-08-25] MEDS ORDERED: NS 1,000 ML IV SCH (11:45)
[2018-08-25 11:53] LABS: HEMOGLOBIN 7.5 g/dl (12.0-15.5); MEAN CORPUSCULAR HEMOGLOBIN 25.3 pg (27.0-33.0); MEAN CORPUSCULAR VOLUME 84.5 fl (80.0-96.0); PLATELET COUNT, AUTOMATED 236 10^3/uL (150-450); RED BLOOD COUNT 2.96 10^6/uL (4.00-5.40)
[2018-08-25 12:08] LABS: INR 1.05; PROTHROMBIN TIME 13.8 SECONDS (12.1-14.4)
[2018-08-25 12:09] LABS: PARTIAL THROMBOPLASTIN TIME 24.7 SECONDS (25.4-37.6)
--- NOTE | 2018-08-25 12:11 | REP ---
CT of the brain without IV contrast: Comparisons are 07/30/2089 a 11/24/2017. There is a small acute parenchymal hemorrhage in the a single right frontal lobe gyrus measuring 6 mm as a change from both comparison studies. There is no subdural, epidural or subarachnoid hemorrhage. There is no edema, mass effect or midline shift. The cortical stripe is unremarkable. The ventricles and sulci are mildly dilated compatible with diffuse volume loss, unchanged. There is a right basal ganglia calcification, unchanged. The visualized paranasal sinuses and mastoid air cells are clear. Impression: New small 6 ml intraparenchymal hemorrhage in a single gyrus of the right frontal lobe as an interval change, without edema, mass effect or midline shift. No other hemorrhage. Chronic diffuse volume loss. Chronic right basal ganglia calcification. Electronically Signed by Duarte Thornton MD 08/25/2018 12:03 P
[2018-08-25] MEDS ORDERED: OMEP40CA2 PO (12:17)
--- NOTE | 2018-08-25 12:18 | REP ---
Chest single PA view: Comparison is 07/30/2018. The lung conde are clear. Cardiac size is normal. The rhiannon are unremarkable. There is a large fixed hiatal hernia, unchanged. The mediastinum, bony thorax otherwise are unremarkable. Impression: No acute cardiopulmonary findings. Large fixed hiatal hernia, unchanged. Electronically Signed by Duarte Thornton MD 08/25/2018 12:09 P
[2018-08-25 12:23] LABS: ALBUMIN 2.8 GM/DL (3.2-5.2); ALT/SGPT 23 U/L (12-78); BILIRUBIN,DIRECT < 0.1 MG/DL (0.0-0.2); BILIRUBIN,TOTAL 0.2 MG/DL (0.2-1.0); BLOOD UREA NITROGEN 37 MG/DL (7-18); CARBON DIOXIDE LEVEL 26 MEQ/L (21-32); CHLORIDE LEVEL 111 MEQ/L (98-107); CPK CREATINE PHOSPHOKINASE 41 U/L (26-192); CREATININE FOR GFR 0.91 MG/DL (0.55-1.30); GLOMERULAR FILTRATION RATE > 60.0 (>32); GLUCOSE, FASTING 194 MG/DL (70-100); MB/CK RELATIVE INDEX 3.17 (< OR =4); POTASSIUM SERUM 4.3 MEQ/L (3.5-5.1); SODIUM LEVEL 146 MEQ/L (136-145); TOTAL PROTEIN 5.5 GM/DL (6.4-8.2); TROPONIN I < 0.02 NG/ML (< 0.10)
[2018-08-25] MEDS ORDERED: PANTOPRAZOLE SODIUM 40 MG in D5W 50 ML IV SCH ×3 (12:45→14:45)
[2018-08-25] MEDS ORDERED: ONDANSETRON 4MG/2ML VIAL (J2405) IV PRN (14:45)
[2018-08-25] MEDS: NS 1,000 ML IV SCH (15:00)
--- NOTE | 2018-08-25 16:02 | HPE ---
DATE OF ADMISSION: 08/25/2018 CHIEF COMPLAINT: Dizziness and nausea for 7-10 days with black, tarry stools, unwitnessed fall last night. PRIMARY CARE PROVIDER: Dr. Jacey Dejesus HISTORY OF PRESENT ILLNESS: This is an 82-year-old female with a past medical history significant for recurrent gastrointestinal (GI) bleeding and Fabian lesions as well as a hiatal hernia, who has been having 7-10 days of black, tarry stools as well as dizziness and nausea. She is accompanied by her friend, who is also her power of internal grinder tender and healthcare proxy, and from whom most of the history is obtained. She was recently hospitalized from 07/30/2018 to 08/02/2018 for a week of black, tarry stools and syncopal episode. She underwent esophagogastroduodenoscopy (ED) EGD and colonoscopy by Dr. Savage on 08/01/2018 and found to have and a large hiatal hernia, a Fabian erosion, diverticulosis, and internal hemorrhoids. She was treated with intravenous (IV) Protonix, 1 unit of packed red cells, and IV fluid. Hemoglobin on day of discharge, which was 08/02/2018, was 8.6. She presents today following another syncopal episode. Apparently she fell last night while she was having black, tarry stools and smashed her head into the wall. She woke up to find herself in her own fecal matter and promptly cleaned up the mess. She states that she was having some nausea and dizziness. The patient did not tell the people she lives with about her being dizzy and having black, tarry stools. Her friend's mother was at home with the patient, when the patient had mentioned to her that she had just cleaned up the bathroom. The patient admits that she has had a decreased appetite and feels like her belly is a little distended. Previously, she had a hemoglobin and hematocrit, which showed hemoglobin 18.8 on 08/18/2018. When she was brought to the emergency room (ER), her hemoglobin was found be 7.5, and she was typed and crossed for 3 units of blood and given IV fluids as well as a Protonix drip. REVIEW OF SYSTEMS: CONSTITUTIONAL: Denies unexplained weight loss, fevers, chills, changes to sleeping pattern. Positive for decreased appetite. HEENT: Denies visual changes, headaches, double vision, epistaxis, tinnitus, sinus pain, sore throat, or odynophagia. CARDIOVASCULAR: Denies chest pain, palpitations, orthopnea, paroxysmal nocturnal dyspnea (PND), edema, or shortness of breath RESPIRATORY: Denies cough, sputum, wheezes, hemoptysis. GASTROINTESTINAL: Positive for abdominal distension and black, tarry stools, and decreased appetite., and nausea. Negative for vomiting, constipation, obstipation, hematemesis, hematochezia, or tenesmus. GENITOURINARY: Denies incontinence, dysuria, hematuria, nocturia, polyuria. MUSCULOSKELETAL: Denies any stiffness, joint swelling, or decreased range of motion. Her friend says that she has been having trouble with her gait recently. INTEGUMENTARY: Denies any pruritus, rashes, dry lesions, wounds, or incisions. NEUROLOGIC: Denies any changes to sight/smell/hearing/taste, seizures, headaches, paresthesias, anesthesias, or limb weakness. PSYCHIATRIC: Denies depression, anxiety, anhedonia, paranoia, or episodes of zonia. ENDOCRINE: Denies any tremors, palpitations, diarrhea, mood swings, constipation, dry skin, or polydipsia. HEMATOLOGIC: Denies any anemia, purpura, petechiae, easy bruising or bleeding. Her own of bleeding is black, tarry stools out of her bottom. LYMPHATIC: Denies any new lumps or bumps anywhere. PAST MEDICAL HISTORY: 1. Seasonal allergies. 2. Hypothyroidism. 3. Gastrointestinal (GI) bleed with multiple hospitalizations, at least greater than three. HOME MEDICATIONS: - aspirin 81 mg daily - omeprazole 40 mg daily - levothyroxine 75 mcg daily - cholecalciferol 1000 units daily - oyster shell calcium 500 mg daily - Liquitears 1.4% solution, two drops each eye four times a day as needed PAST SURGICAL HISTORY: 1. Hysterectomy. 2. Skin graft, right foot. 3. Left foot and ankle surgery. 4. Dental surgery. 5. Eye surgery. 6. Tonsils and adenoids 7. Upper lower endoscopy in July by Dr. Savage. FAMILY HISTORY: Noncontributory. SOCIAL HISTORY: The patient lives with a friend from [place], who is also her power of internal grinder tender and healthcare proxy. They belong to [employer]. Her only remaining family is in [place], as the family she came to live with here was not a good situation, which is why she is living with her friend. She does not smoke, drink, or use drugs. Her power of internal grinder tender and healthcare proxy, Lauren Hargrove, can be reached at . Patient is a FULL CODE PHYSICAL EXAMINATION: VITAL SIGNS: Temperature 97.1, pulse 73, respiratory rate 18, blood pressure 115/66, pulse oximetry is 99% on room. GENERAL: Elderly and frail-appearing female who was quite pale. HEENT: Atraumatic, normocephalic. There is no point tenderness to the scalp, and I do not appreciate any bruising. The patient is edentulous, and mucous membranes are moist. Conjunctivae are pale. Pupils equal, round, and reactive. Extraocular movements are intact. NECK: No point tenderness along the cervical spine. Supple. No jugular venous distention (JVD) . HEART: Regular rate and rhythm. No murmurs, gallops, or rubs. LUNGS: Clear to auscultation bilaterally. No wheezes, rhonchi, or rales. ABDOMEN: Hyperactive bowel sounds appreciated in all four quadrants. The patient is obese, and she is nontender to palpation in all four quadrants. BACK: No costovertebral angle (CVA) tenderness appreciated bilaterally. EXTREMITIES: Capillary refill is greater than 3 seconds in both upper extremities. There is no bilateral lower extremity edema or clubbing. No cyanosis is noted. NEUROLOGIC: Muscle strength 5/5 throughout. Sensation is not diminished. The patient answers questions appropriately, however, does have some tangential thoughts. LABORATORY DATA CBC: WBC 8.0, hemoglobin 7.3, hematocrit 25.0 platelets 236. Chemistry: Sodium 146, potassium 4.3, chloride 111, carbon dioxide 26, anion gap 9, BUN 37, creatinine 0.91, fasting glucose 194, calcium 8.0. Total bilirubin 0.2, direct bilirubin less than 0.1, AST 12, ALT 23, alkaline phosphatase 68, total creatine kinase 41, CK-MB 1.0, troponin less than 0.02, total protein 5.5, albumin 2.8. Coagulation: PT 13.8, INR 1.05, APTT 24.7. Blood bank: The patient is O negative and has been typed and crossed for 2 units. IMAGING STUDIES: Head CT on 08/25/2018 shows a focal density in the right frontal lobe, which is likely a chronic degenerative calcification. No acute hemorrhage, mass, or infarct. Chest x-ray on 08/25/2018: Lung conde are clear. No acute cardiopulmonary findings. Large fixed hiatal hernia, unchanged. ASSESSMENT: This is an 82-year-old female with a past medical history significant for recurrent gastrointestinal (GI) bleeding, hiatal hernia, and Fabian lesions who is being admitted for GI bleeding. PLAN: 1. GI bleeding . The patient is nothing by mouth. She will receive IV Protonix 40 mg twice a day. Dr. Rankin has been consulted. Appreciate his input. Trend hemoglobin and hematocrit every 6 hours. The patient has been typed and crossed for blood. Normal saline at 120 mL per hour. As she is having melena, she may have bleeding from an arteriovenous malformation (AVM). We will be getting a nuclear medicine bleeding scan. Dr. Rankin will only scope her if she continues to bleed. 2. Hypothyroidism. Will have to convert her by mouth levothyroxine to IV, as she is nothing by mouth. 3. Deep vein thrombosis (DVT) prophylaxis, thromboembolic deterrents (TEDs) and sequentials. She will not receive anticoagulation, as she is actively bleeding. DISPOSITION: The patient will be on the service of Dr. Annamaria Pedraza starting at 0700 hours on 08/26/2018. My faculty preceptor for this patient encounter was physically present during the encounter and was fully available. All aspects of the patient interview, examination, medical decision making process, and medical care plan development were reviewed and approved by the faculty preceptor. The faculty preceptor is aware and concurs with the plan as stated in the body of this note and will attest to such by his/her co-signature. I have both independently examined this patient as well as reviewed the H&P. I have discussed in detail with the resident the findings and plan of treatment as documented in the resident's note- MD JL Ascencio
[2018-08-25 16:41] VITALS: BP 128/64
--- NOTE | 2018-08-25 16:50 | CR.PDOC ---
General Date of Consultation: Aug 25, 2018 Referring Provider: CEM RICHARDS MD Attending Physician: EMIR OLIVARES MD Consultation Primary physician/ hospitalist: PCP Dr. Dejesus./ Hospitalist: Dr. Richards / Dr. Curtis. Reason for consult: Drop in hemoglobin and hematocrit and dark stools. HPI: 82-year-old female patient with hypothyroidism, prior multiple episodes of GI bleeding (last episode in July 2018, when patient presented with dark stools and drop in H/H, underwent EGD and colonoscopy by Dr. Savage -- noted [place] ulcers, hiatal hernia, no active bleeding lesion), now presents with to ER for complaints of syncopal episode preceded by multiple dark black stools, at least 7-10, over the last couple of days. Patient reports having nausea, followed by dark stools, feeling dizzy since yesterday and today morning had one episode of syncope. Patient's last bowel movement was today morning. Currently patient denies any vomiting and abdominal pain, and reports her nausea has improved. Patient denies taking OTC NSAIDs. Patient reports being, planned with omeprazole which was prescribed to her in her last hospitalization. Pertinent negative GI symptoms: Patient denies vomiting, hematemesis, abdominal pain, unintentional weight loss Review of Systems: GI: as stated above CVS: No chest pain, No palpitations, No leg swelling. 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 Skin: No rash : No hematuria, No burning sensation of the urine ENT: No ear discharge/ pain, No dysphagia. Eyes: No photophobia. Home medications: reviewed. Antithrombotic agents -aspirin 81 mg for primary prophylaxis. Medical h/o: As above. Surgical h/o: C- section many years ago Social h/o: Alcohol-denies, tobacco- denies. IVDA/ drugs-denies. Family h/o of GI cancers -noncontributory Prior Endoscopies: --- EGD done on 08/01/[address] Newton - for acute drop in H/H and melena -- hiatal hernia, abdominal and ulcers, no active bleeding lesions. Gastric biopsy no H. pylori. --- Colonoscopy -- done on 08/01/[address] Newton - for acute drop in H/H and melena - good prep, completed till TI, Noted diverticulosis of the sigmoid colon, no active bleeding. Terminal ileum is normal Prior GI evaluation: Previously seen in last hospitalization. Exam: Vitals: reviewed General: Alert and oriented x 3, not in distress HEENT: NO pallor, no icterus. Normal oropharynx, NO cervical lymph nodes. Chest: symmetric with bilateral clear air entry, CVS: S1, S2 heard, normal, no murmurs . Abdomen: non-distended, no surgical scars, soft, non-tender, no palpable masses, normal bowel sounds heard. Rectal exam: Patient declined.. Extremities: no pedal edema, pulses palpable. 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 Moves all extremities Skin: no rash. Labs: reviewed. Impression: - Recurring episodes of Darks stools with drop in H/H and recent EGD and Colonoscopy done 3 weeks ago -- Noted no active bleeding lesions, noted Fabian ulcers ( not actively bleeding). -- DDx-- rule out Obscure upper GI bleeding from Small bowel AVMs vs Dieulafoy lesion vs less likely AVM of right sided colon vs small bowel tumor. No overt active bleeding at this time. Recommendations: - Patient educated about the test results, possible differential diagnoses and All questions answered. - Monitor H/H closely. - Transfuse as needed to keep hemoglobin around 8-9. - Continue with IV Pantoprazole 40 mg twice daily for atleast 24 hours and then switch to oral Pantoprazole 40 mg twice daily for atleast 8 weeks. - No contraindications to take Aspirin 81 mg daily. ( patient educated to take it after meals and avoid on empty stomach). - Closely monitor fluid status. - Can give Clear liquid diet for now. - In view of recent EGD showing no active bleeding and no more black stools in ER, will obtain GI bleeding scan ( tagged RBC bleeding scan) to localize small bowel bleeding. - Based on the results will plan for either repeat EGD with push enteroscopy or Angiographic embolization. - If patient has overt active bleeding, please update GI and will proceed with urgent EGD with endoscopic intervention. At this time patient does not have any further episodes of diarrhea/ Melena. Plan of care discussed with patient and primary team. Patient verbalized understanding and agreed with the plan. Allergies Coded Allergies: No Known Allergies (Unverified , 11/24/17) Home Medications Scheduled Aspirin (Aspirin 81) 81 Mg Tab, 81 MG PO QHS, (Reported) Cholecalciferol (Vitamin D3) 5,000 Unit Cap, 5,000 UNIT PO QHS, (Reported) Docusate Sodium (Colace) 100 Mg Cap, 100 MG PO Q2D, (Reported) PT JUST RESTARTING DUE TO IRON SUPPLEMENT. TAKING MONDAY, MONDAY, MONDAY. Ferrous Sulfate (Ferrous Sulfate) 324 Mg Tab, 324 MG PO QHS, (Reported) Levothyroxine Sodium (Synthroid) 75 Mcg Tab, 75 MCG PO QAM, (Reported) Omeprazole (Omeprazole) 40 Mg Cap, 40 MG PO DAILY, (Reported) Oyster Shell Calcium (Calcium) 500 Mg Tab, 500 MG PO BID, (Reported) Scheduled PRN Loratadine (Claritin) 10 Mg Tab, 10 MG PO DAILY PRN for ALLERGY SYMPTOMS, (Reported) EMIR OLIVARES MD Aug 25, 2018 16:50
[2018-08-25 18:45] LABS: BASO % 0.4 % (0.0-1.0); EOS # 0.1 10^3/uL (0.0-0.50); EOS % 0.9 % (0.0-3.0); HEMATOCRIT 30.7 % (36.0-47.0); LYMPH # 1.3 10^3/uL (1.5-4.5); MEAN CORPUSCULAR HEMOGLOBIN 26.4 pg (27.0-33.0); MEAN CORPUSCULAR HGB CONC 31.6 g/dl (32.0-36.5); MEAN CORPUSCULAR VOLUME 83.4 fl (80.0-96.0); MONO # 0.9 10^3/uL (0.0-0.8); MONO % 9.1 % (0.0-5.0); NEUTROPHILS # 7.4 10^3/uL (1.8-7.7); NEUTROPHILS % 74.7 % (36.0-66.0); PLATELET COUNT, AUTOMATED 232 10^3/uL (150-450); RED BLOOD COUNT 3.68 10^6/uL (4.00-5.40); WHITE BLOOD COUNT 9.9 10^3/uL (4.0-10.0)
[2018-08-25 19:00] LABS: HEMOGLOBIN 9.7 g/dl (12.0-15.5)
[2018-08-25] MEDS: PANTOPRAZOLE 40MG INJ (PROTONIX) (C9113) IV SCH (21:11)
[2018-08-25 22:00] VITALS: BP 141/67
[2018-08-26 00:20] LABS: BASO # 0.1 10^3/uL (0.0-0.2); BASO % 0.7 % (0.0-1.0); EOS # 0.1 10^3/uL (0.0-0.50); EOS % 1.4 % (0.0-3.0); HEMATOCRIT 30.7 % (36.0-47.0); HEMOGLOBIN 9.6 g/dl (12.0-15.5); LYMPH # 1.3 10^3/uL (1.5-4.5); LYMPH % 13.3 % (24.0-44.0); MEAN CORPUSCULAR HEMOGLOBIN 26.4 pg (27.0-33.0); MEAN CORPUSCULAR HGB CONC 31.3 g/dl (32.0-36.5); MEAN CORPUSCULAR VOLUME 84.6 fl (80.0-96.0); MONO # 0.8 10^3/uL (0.0-0.8); MONO % 8.7 % (0.0-5.0); NEUTROPHILS % 74.3 % (36.0-66.0); PLATELET COUNT, AUTOMATED 217 10^3/uL (150-450); RED BLOOD COUNT 3.63 10^6/uL (4.00-5.40); WHITE BLOOD COUNT 9.4 10^3/uL (4.0-10.0)
[2018-08-26] MEDS: NS 1,000 ML IV SCH (01:33)
[2018-08-26 06:00] VITALS: BP 116/59
[2018-08-26 06:22] LABS: BASO # 0.1 10^3/uL (0.0-0.2); BASO % 0.9 % (0.0-1.0); EOS # 0.2 10^3/uL (0.0-0.50); EOS % 2.9 % (0.0-3.0); HEMATOCRIT 28.5 % (36.0-47.0); HEMOGLOBIN 9.1 g/dl (12.0-15.5); LYMPH # 0.9 10^3/uL (1.5-4.5); LYMPH % 13.6 % (24.0-44.0); MEAN CORPUSCULAR HEMOGLOBIN 26.5 pg (27.0-33.0); MEAN CORPUSCULAR HGB CONC 31.9 g/dl (32.0-36.5); MEAN CORPUSCULAR VOLUME 82.8 fl (80.0-96.0); MONO # 0.7 10^3/uL (0.0-0.8); MONO % 10.1 % (0.0-5.0); NEUTROPHILS # 4.9 10^3/uL (1.8-7.7); NEUTROPHILS % 70.8 % (36.0-66.0); PLATELET COUNT, AUTOMATED 210 10^3/uL (150-450); RED BLOOD COUNT 3.44 10^6/uL (4.00-5.40); WHITE BLOOD COUNT 6.9 10^3/uL (4.0-10.0)
[2018-08-26 06:36] LABS: BLOOD UREA NITROGEN 22 MG/DL (7-18); CALCIUM LEVEL 7.1 MG/DL (8.8-10.2); CARBON DIOXIDE LEVEL 26 MEQ/L (21-32); CHLORIDE LEVEL 113 MEQ/L (98-107); CREATININE FOR GFR 0.72 MG/DL (0.55-1.30); GLOMERULAR FILTRATION RATE > 60.0 (>32); GLUCOSE, FASTING 89 MG/DL (70-100); POTASSIUM SERUM 3.8 MEQ/L (3.5-5.1); SODIUM LEVEL 145 MEQ/L (136-145)
[2018-08-26] MEDS ORDERED: LORATADINE 10 MG TAB PO PRN (06:45)
[2018-08-26] MEDS: LEVOTHYROXINE 75MCG TABLET (0.075MG) PO SCH (07:01)
[2018-08-26] MEDS: OYSTER SHELL CALCIUM 500 MG TAB PO SCH ×2 (08:06→20:15)
[2018-08-26] MEDS: PANTOPRAZOLE 40MG INJ (PROTONIX) (C9113) IV SCH ×2 (08:07→20:15)
[2018-08-26] MEDS ORDERED: LEVOTHYROXINE 100 MCG (0.1MG) VIAL IV SCH (09:00)
--- NOTE | 2018-08-26 09:03 | IPNPDOC ---
Date Seen The patient was seen on 08/26/18. Progress Note SUBJECTIVE: Patient reports feeling well this morning she denies any abdominal pain or any further dark tarry stools. She tells me she has not been up yet today but feels as though her dizziness has improved. She denies fevers chills chest pressure shortness of breath OBJECTIVE PHYSICAL EXAMINATION: VITAL SIGNS: Please see below. GENERAL: Very pleasant obese elderly female lying flat in bed awake alert oriented 3 she does not appear to be in any acute distress HEENT: or pallor moist mucous membranes cranial nerves intact CARDIOVASCULAR: S1-S2 she is not tachycardic. RESPIRATORY: Clear to auscultation bilaterally. ABDOMINAL: Obese bowel sounds are present abdomen is soft and nontender fairly benign exam EXTREMITIES: clubbing cyanosis there is trace edema bilaterally LABORATORY DATA, IMAGING STUDIES, MICROBIOLOGY: Please see below. DVT prophylaxis ordered?: Teds and sequentials no pharmacological agents in the setting of suspected bleeding ASSESSMENT AND PLAN: This is a 82-year-old female with symptomatic anemia secondary to acute blood loss anemia related to GI bleed. PROBLEMS: 1. 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 GI has seen and evaluated the patient is concern for possible small bowel AVM versus dull a Gtz lesion versus AVMs in the large bowel versus a small tumor not seen previously on endoscopy. My suspicion that her GI losses a rather slow and gradual over the period of several weeks she did have a positive response to blood message I will decrease the frequency with which we are checking her hemoglobin and appears to be remaining stable. As per GI recommendations we'll continue with IV PPI today and consider transitioning her to by mouth PPI twice a day starting tomorrow as well as resuming aspirin potentially tomorrow. She is tolerating a clear liquid diet. There is suggestion to obtain a bleeding scan given that do not suspect brisk acute bleeding my suspicion for any positive finding on this particular study is quite low. We'll continue to monitor closely. The patient is status post 2 units PRBCs. We will resume her home ferrous sulfate 2. Hypothyroidism: Continue home Synthroid dosing. 3. Seasonal allergies: Continue with Claritin. 4. Vitamin D deficiency: Continue with supplementation DISPOSITION: Pending stabilization of her hemoglobin and possible nuclear medicine study on Monday. VS, I&O, 24H, [facility] Vital Signs/I&O Vital Signs Date Time Temp Pulse Resp B/P (MAP) Pulse Ox O2 Delivery O2 Flow Rate FiO2 08/26/18 06:00 97.5 65 18 116/59 (78) 96 08/25/18 15:31 Room Air I&O- Last 24 Hours up to 6 AM 08/26/18 06:00 Intake Total 1180 ml Output Total 650 ml Balance 530 ml Laboratory Data 24H LABS Laboratory Tests 2 08/25/18 11:46: Nucleated Red Blood Cells % (auto) 0.0, Prothrombin Time 13.8, Prothromb Time International Ratio 1.05, Activated Partial Thromboplast Time 24.7L, Anion Gap 9, Glomerular Filtration Rate > 60.0, Calcium Level 8.0L, Aspartate Amino Transf (AST/SGOT) 12, Alanine Aminotransferase (ALT/SGPT) 23, Alkaline Phosphatase 68, Total Bilirubin 0.2, Direct Bilirubin < 0.1, Total Creatine Kinase 41, Creatine Kinase MB 1.0, Creatine Kinase MB Relative Index 3.17, Troponin I < 0.02, Total Protein 5.5L, Albumin 2.8L, Albumin/Globulin Ratio 1.04 08/25/18 18:20: Nucleated Red Blood Cells % (auto) 0.0, Immature Granulocyte % (Auto) 1.9, White Blood Count 9.9, Red Blood Count 3.68L, Hemoglobin 9.7#L, Hematocrit 30.7L, Mean Corpuscular Volume 83.4, Mean Corpuscular Hemoglobin 26.4L, Mean Corpuscular Hemoglobin Concent 31.6L, Red Cell Distribution Width 14.3, Platelet Count 232, Neutrophils (%) (Auto) 74.7H, Lymphocytes (%) (Auto) 13.0L, Monocytes (%) (Auto) 9.1H, Eosinophils (%) (Auto) 0.9, Basophils (%) (Auto) 0.4, Neutrophils # (Auto) 7.4, Lymphocytes # (Auto) 1.3L, Monocytes # (Auto) 0.9H, Eosinophils # (Auto) 0 .1, Basophils # (Auto) 0.0 08/25/18 23:53: Nucleated Red Blood Cells % (auto) 0.0, Immature Granulocyte % (Auto) 1.6, White Blood Count 9.4, Red Blood Count 3.63L, Hemoglobin 9.6L, Hematocrit 30.7L, Mean Corpuscular Volume 84.6, Mean Corpuscular Hemoglobin 26.4L, Mean Corpuscular Hemoglobin Concent 31.3L, Red Cell Distribution Width 14.3, Platelet Count 217, Neutrophils (%) (Auto) 74.3H, Lymphocytes (%) (Auto) 13.3L, Monocytes (%) (Auto) 8.7H, Eosinophils (%) (Auto) 1.4, Basophils (%) (Auto) 0.7, Neutrophils # (Auto) 7.0, Lymphocytes # (Auto) 1.3L, Monocytes # (Auto) 0.8, Eosinophils # (Auto) 0.1, Basophils # (Auto) 0.1 08/26/18 05:40: Nucleated Red Blood Cells % (auto) 0.0, Anion Gap 6L, Glomerular Filtration Rate > 60.0, Calcium Level 7.1L, Immature Granulocyte % (Auto) 1.7, White Blood Count 6.9, Red Blood Count 3.44L, Hemoglobin 9.1L, Hematocrit 28.5L, Mean Corpuscular Volume 82.8, Mean Corpuscular Hemoglobin 26.5L, Mean Corpuscular Hemoglobin Concent 31.9L, Red Cell Distribution Width 14.6H, Platelet Count 210, Neutrophils (%) (Auto) 70.8H, Lymphocytes (%) (Auto) 13.6L, Monocytes (%) (Auto) 10.1H, Eosinophils (%) (Auto) 2.9, Basophils (%) (Auto) 0.9, Neutrophils # (Auto) 4.9, Lymphocytes # (Auto) 0.9L, Monocytes # (Auto) 0.7, Eosinophils # (Auto) 0.2, Basophils # (Auto) 0.1, Blood Urea Nitrogen 22H, Creatinine 0.72, Sodium Level 145, Potassium Level 3.8, Chloride Level 113H, Carbon Dioxide Level 26 CBC/BMP Laboratory Tests 08/25/18 11:46 Red Blood Count 2.96 L, Mean Corpuscular Volume 84.5, Mean Corpuscular Hemoglobin 25.3 L, Mean Corpuscular Hemoglobin Concent 30.0 L, Red Cell Distribution Width 14.6 H 08/25/18 18:20 Red Blood Count 3.68 L, Mean Corpuscular Volume 83.4, Mean Corpuscular Hemoglobin 26.4 L, Mean Corpuscular Hemoglobin Concent 31.6 L, Red Cell Distribution Width 14.3, Neutrophils (%) (Auto) 74.7 H, Lymphocytes (%) (Auto) 13.0 L, Monocytes (%) (Auto) 9.1 H, Eosinophils (%) (Auto) 0.9, Basophils (%) (Auto) 0.4, Neutrophils # (Auto) 7.4, Lymphocytes # (Auto) 1.3 L, Monocytes # (Auto) 0.9 H, Eosinophils # (Auto) 0.1, Basophils # (Auto) 0.0 08/25/18 23:53 Red Blood Count 3.63 L, Mean Corpuscular Volume 84.6, Mean Corpuscular Hemoglobin 26.4 L, Mean Corpuscular Hemoglobin Concent 31.3 L, Red Cell Distribution Width 14.3, Neutrophils (%) (Auto) 74.3 H, Lymphocytes (%) (Auto) 13.3 L, Monocytes (%) (Auto) 8.7 H, Eosinophils (%) (Auto) 1.4, Basophils (%) (Auto) 0.7, Neutrophils # (Auto) 7.0, Lymphocytes # (Auto) 1.3 L, Monocytes # (Auto) 0.8, Eosinophils # (Auto) 0.1, Basophils # (Auto) 0.1 08/26/18 05:40 Red Blood Count 3.44 L, Mean Corpuscular Volume 82.8, Mean Corpuscular Hemoglobin 26.5 L, Mean Corpuscular Hemoglobin Concent 31.9 L, Red Cell Distribution Width 14.6 H, Neutrophils (%) (Auto) 70.8 H, Lymphocytes (%) (Auto) 13.6 L, Monocytes (%) (Auto) 10.1 H, Eosinophils (%) (Auto) 2.9, Basophils (%) (Auto) 0.9, Neutrophils # (Auto) 4.9, Lymphocytes # (Auto) 0.9 L, Monocytes # (Auto) 0.7, Eosinophils # (Auto) 0.2, Basophils # (Auto) 0.1, Calcium Level 7.1 L KARL RAND MD Aug 26, 2018 09:03
[2018-08-26 14:00] VITALS: BP 135/68
--- NOTE | 2018-08-26 17:40 | ECGEPIP ---
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
[2018-08-26 18:11] LABS: BASO % 0.6 % (0.0-1.0); EOS # 0.2 10^3/uL (0.0-0.50); EOS % 2.8 % (0.0-3.0); HEMATOCRIT 32.7 % (36.0-47.0); HEMOGLOBIN 10.3 g/dl (12.0-15.5); LYMPH % 14.5 % (24.0-44.0); MEAN CORPUSCULAR HEMOGLOBIN 26.6 pg (27.0-33.0); MEAN CORPUSCULAR HGB CONC 31.5 g/dl (32.0-36.5); MEAN CORPUSCULAR VOLUME 84.5 fl (80.0-96.0); MONO # 0.6 10^3/uL (0.0-0.8); MONO % 8.5 % (0.0-5.0); NEUTROPHILS # 4.8 10^3/uL (1.8-7.7); NEUTROPHILS % 72.3 % (36.0-66.0); PLATELET COUNT, AUTOMATED 233 10^3/uL (150-450); RED BLOOD COUNT 3.87 10^6/uL (4.00-5.40); WHITE BLOOD COUNT 6.7 10^3/uL (4.0-10.0)
[2018-08-26] MEDS: VITAMIN D 1,000 INTERNATIONAL UNITS TABLET PO SCH (20:15)
[2018-08-26] MEDS: FERROUS SULFATE 325MG TAB PO SCH (20:15)
[2018-08-26 22:00] VITALS: BP 128/63
[2018-08-27] MEDS: LEVOTHYROXINE 75MCG TABLET (0.075MG) PO SCH (05:30)
[2018-08-27 06:04] VITALS: BP 120/64
[2018-08-27 06:09] LABS: HEMATOCRIT 29.7 % (36.0-47.0); HEMOGLOBIN 9.3 g/dl (12.0-15.5); MEAN CORPUSCULAR HEMOGLOBIN 26.2 pg (27.0-33.0); MEAN CORPUSCULAR HGB CONC 31.3 g/dl (32.0-36.5); MEAN CORPUSCULAR VOLUME 83.7 fl (80.0-96.0); PLATELET COUNT, AUTOMATED 204 10^3/uL (150-450); RED BLOOD COUNT 3.55 10^6/uL (4.00-5.40); WHITE BLOOD COUNT 5.4 10^3/uL (4.0-10.0)
[2018-08-27 06:30] LABS: BLOOD UREA NITROGEN 10 MG/DL (7-18); CALCIUM LEVEL 7.6 MG/DL (8.8-10.2); CARBON DIOXIDE LEVEL 27 MEQ/L (21-32); CHLORIDE LEVEL 109 MEQ/L (98-107); CREATININE FOR GFR 0.74 MG/DL (0.55-1.30); GLOMERULAR FILTRATION RATE > 60.0 (>32); GLUCOSE, FASTING 91 MG/DL (70-100); POTASSIUM SERUM 3.8 MEQ/L (3.5-5.1); SODIUM LEVEL 142 MEQ/L (136-145)
[2018-08-27] MEDS: OYSTER SHELL CALCIUM 500 MG TAB PO SCH ×2 (08:21→20:47)
[2018-08-27] MEDS: PANTOPRAZOLE 40MG INJ (PROTONIX) (C9113) IV SCH (08:21)
--- NOTE | 2018-08-27 09:36 | IPNPDOC ---
Text Note Date of Service The patient was seen on 08/27/18. NOTE SUBJECTIVE: Patient seen at bedside. She states that she is feeling well this morning and has no acute concerns. She denies any abdominal pain. She states that she had a dark bowel movement yesterday, however according to nursing was brown instead of tarry. She denies any dizziness, shortness of breath, palpitations, nausea, or diarrhea. OBJECTIVE: VITAL SIGNS: Please see below. GENERAL: Very pleasant, obese, elderly, female lying flat in bed. She is awake, alert and oriented 3. No acute distress HEENT: Some conjunctival pallor that has improved since admission. Mucous membranes are moist. HEART:Regular rate and rhythm; no murmurs, gallops, or rubs. Not tachycardic. LUNGS: Clear to auscultation bilaterally; no wheezes, rhonchi, or rales. ABDOMINAL: Obese. Normoactive bowel sounds. Abdomen is soft and nontender. EXTREMITIES: Patient has trace edema bilaterally, however there is no clubbing or cyanosis LABORATORY DATA, IMAGING STUDIES, MICROBIOLOGY: Please see below. DVT prophylaxis ordered?: Teds and sequentials no pharmacological agents in the setting of suspected bleeding ASSESSMENT AND PLAN: This is a 82-year-old female with symptomatic anemia secondary to acute blood loss anemia related to GI bleed. PROBLEMS: 1. 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 GI has seen and evaluated the patient, there is concern for possible small bowel AVM versus Dieulafoy lesion versus AVMs in the large bowel versus a small tumor not seen previously on endoscopy. It is suspected that her GI loss is rather slow and gradual over the period of several weeks. She did have a positive response to blood products. Her hemoglobin appears to be stable at this time. As per GI rec ommendations we'll continue with Protonix, she will start on oral tonight. We can resume aspirin potentially tomorrow. She is tolerating a clear liquid diet, which will be advanced today. Our suspicion for any positive finding on a nuclear med scan is low, therefore we have agreed with gastroenterology to cancel this study. We'll continue to monitor closely. The patient is status post 2 units PRBCs. We will resume her home ferrous sulfate 2. Hypothyroidism: Continue home Synthroid dosing. 3. Seasonal allergies: Continue with Claritin. 4. Vitamin D deficiency: Continue with supplementation DISPOSITION: Pending stabilization of her hemoglobin and nuclear medicine study today. VS,Dennisbone, I+O VS, Fishbone, I+O Laboratory Tests 08/26/18 17:59 Red Blood Count 3.87 L, Mean Corpuscular Volume 84.5, Mean Corpuscular Hemoglobin 26.6 L, Mean Corpuscular Hemoglobin Concent 31.5 L, Red Cell Distribution Width 14.7 H, Neutrophils (%) (Auto) 72.3 H, Lymphocytes (%) (Auto) 14.5 L, Monocytes (%) (Auto) 8.5 H, Eosinophils (%) (Auto) 2.8, Basophils (%) (Auto) 0.6, Neutrophils # (Auto) 4.8, Lymphocytes # (Auto) 1.0 L, Monocytes # (Auto) 0.6, Eosinophils # (Auto) 0.2, Basophils # (Auto) 0.0 08/27/18 05:36 Red Blood Count 3.55 L, Mean Corpuscular Volume 83.7, Mean Corpuscular Hemoglobin 26.2 L, Mean Corpuscular Hemoglobin Concent 31.3 L, Red Cell Distribution Width 14.7 H, Calcium Level 7.6 L Vital Signs Date Time Temp Pulse Resp B/P (MAP) Pulse Ox O2 Delivery O2 Flow Rate FiO2 08/27/18 06:04 97.1 66 18 120/64 (82) 95 08/25/18 15:31 Room Air I&O- Last 24 Hours up to 6 AM 08/27/18 06:00 Intake Total 2420 ml Output Total 1350 ml Balance 1070 ml GME ATTESTATION GME ATTESTATION My faculty preceptor for this patient encounter was physically present during the encounter and was fully available. All aspects of the patient interview, examination, medical decision making process, and medical care plan development were reviewed and approved by the faculty preceptor. The faculty preceptor is aware and concurs with the plan as stated in the body of this note and will attest to such by his/her cosignature. SYLVIA CHIN DO Aug 27, 2018 07:17
[2018-08-27 14:00] VITALS: BP 102/56
[2018-08-27] MEDS: VITAMIN D 1,000 INTERNATIONAL UNITS TABLET PO SCH (20:47)
[2018-08-27] MEDS: FERROUS SULFATE 325MG TAB PO SCH (20:47)
[2018-08-27] MEDS: PANTOPRAZOLE 40MG TAB (PROTONIX) PO SCH (20:47)
[2018-08-27 22:00] VITALS: BP 122/62
[2018-08-28 06:00] VITALS: BP 138/66
[2018-08-28 06:14] LABS: HEMATOCRIT 31.2 % (36.0-47.0); HEMOGLOBIN 9.7 g/dl (12.0-15.5); MEAN CORPUSCULAR HEMOGLOBIN 26.1 pg (27.0-33.0); MEAN CORPUSCULAR HGB CONC 31.1 g/dl (32.0-36.5); MEAN CORPUSCULAR VOLUME 83.9 fl (80.0-96.0); PLATELET COUNT, AUTOMATED 216 10^3/uL (150-450); RED BLOOD COUNT 3.72 10^6/uL (4.00-5.40); WHITE BLOOD COUNT 5.3 10^3/uL (4.0-10.0)
[2018-08-28] MEDS: LEVOTHYROXINE 75MCG TABLET (0.075MG) PO SCH (06:21)
[2018-08-28 06:37] LABS: BLOOD UREA NITROGEN 10 MG/DL (7-18); CALCIUM LEVEL 8.6 MG/DL (8.8-10.2); CARBON DIOXIDE LEVEL 29 MEQ/L (21-32); CHLORIDE LEVEL 106 MEQ/L (98-107); CREATININE FOR GFR 0.82 MG/DL (0.55-1.30); GLOMERULAR FILTRATION RATE > 60.0 (>32); GLUCOSE, FASTING 97 MG/DL (70-100); POTASSIUM SERUM 3.9 MEQ/L (3.5-5.1); SODIUM LEVEL 140 MEQ/L (136-145)
[2018-08-28] MEDS ORDERED: PANT40TA3 PO (08:57)
[2018-08-28] MEDS: OYSTER SHELL CALCIUM 500 MG TAB PO SCH (09:18)
[2018-08-28] MEDS: PANTOPRAZOLE 40MG TAB (PROTONIX) PO SCH (09:18)
--- NOTE | 2018-08-28 12:55 | DSES ---
DATE OF ADMISSION: 08/25/2018 DATE OF DISCHARGE: 08/28/2018 CONSULTANTS: Dr. Rankin from gastroenterology. PROCEDURES: None. DISCHARGE DIAGNOSES: 1. Symptomatic anemia secondary to acute blood loss anemia related to gastrointestinal (GI) bleed. 2. Hypothyroidism. 3. Seasonal allergies. 4. Vitamin D deficiency. HOSPITAL COURSE: This is a very pleasant 82-year-old female who was admitted on 08/25/2018 for acute blood loss anemia. She had been having dizziness and nausea for about 7 days with black tarry stools. She was recently hospitalized from 07/30/2018 to 08/02/2018 and her esophagogastroduodenoscopy (EGD) and colonoscopy showed a large hiatal hernia which the patient was aware of as well as a Fabian erosion, diverticulosis and internal hemorrhoids. She was admitted to [facility] and received two blood transfusions. It was felt that her symptomatic anemia with probably related to a slow GI bleed from her Fabian erosion. Her hemoglobin remained stable after 2 units of blood. Her bowel movements spaced out and were no longer tarry. She was put on a higher dose of her proton pump inhibitor (PPI). On 08/28/2018, she was felt safe for discharge. SUBJECTIVE: The patient is seen at bedside. She states that she is feeling well this morning and has no acute concerns. She denies any abdominal pain. She denies any dark bowel movements, dizziness, shortness of breath, palpitations, nausea, or diarrhea. OBJECTIVE: Vitals: Temperature 97.2, pulse 59 and regular, respiratory rate 16, blood pressure 138/66, and pulse oximetry is 97% on room air. General: Very pleasant, obese, elderly female laying flat in bed. She is awake, alert and oriented times three in no acute distress. HEENT: Some conjunctival pallor that is improved since admission. Her mucous membranes are moist. Pupils are equal, round and reactive to light and accommodation. Heart: Regular rate and rhythm. No murmurs, gallops or rubs. Not tachycardiac. Lungs: Clear to auscultation bilaterally. No wheezes, rhonchi or rales. Abdomen: Obese, normoactive bowel sounds, soft and nontender to palpation in all four quadrants. Extremities: Trace edema bilaterally, but no clubbing or cyanosis. LABORATORY STUDIES AND IMAGING: CBC: WBC 5.3, hemoglobin 9.7, hematocrit 31.2, platelets 216. Chemistry: Sodium 140, potassium 3.9, chloride 106, carbon dioxide 29, BUN 10, creatinine 0.82, fasting glucose 97, calcium 8.6. Head CT: Chronic degenerative calcification of the right frontal lobe gyrus. No acute hemorrhage, mass or infarct. Chest x-ray done 08/25/2018 showed lung conde are clear. Cardiac size normal. Merly unremarkable. Large fixed hiatal hernia that is unchanged. No acute cardiopulmonary findings. ASSESSMENT: 82-year-old female with symptomatic anemia secondary to acute blood loss anemia related to GI bleed. PLAN: 1. Symptomatic anemia. 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 We suspect that her GI losses are slow and graduated over a period of several weeks. She had a positive response to blood products and her hemoglobin is stable at this time. She has been changed to Protonix 40 mg b.i.d. and is tolerating her diet. She is status post 2 units of packed RBCs and has been started on her home ferrous sulfate. She will follow up with Dr. Raknin in about a week. 2. Hypothyroidism. Continue home Synthroid. 3. Seasonal allergies. Continue with Claritin. 4. Vitamin D deficiency. Continue supplementation. DISCHARGE MEDICATIONS: - Protonix 40 mg by mouth twice a day - vitamin D3 5000 units by mouth at bedtime - Colace 100 mg by mouth every 2 days - ferrous sulfate 324 mg by mouth at bedtime - Synthroid 75 mcg by mouth every morning - Claritin 10 mg by mouth daily as needed - calcium 500 mg by mouth twice a day DISPOSITION: Stable. DIET: Regular. ACTIVITY: As tolerated. FOLLOWUP: With her primary provider within the next 1-[address] Rankin within the next week. Greater than 30 minutes was spent on discharge. My faculty preceptor for this patient encounter was physically present during the encounter and was fully available. All aspects of the patient interview, examination, medical decision making process, and medical care plan development were reviewed and approved by the faculty preceptor. The faculty preceptor is aware and concurs with the plan as stated in the body of this note and will attest to such by his/her co-signature. edited: 08/29/2018 0730 xochitl PARIKH
[2018-08-29] MEDS ORDERED: NEXI40CA PO (12:38)
[2018-08-29] MEDS ORDERED: OMEP40CA2 PO (12:52)
== END 2018-08-28 13:50 | disposition home or self-care (01) ==
LOC: M ED 11:04 → M ED INP 15:22 → M MSPAV 16:13
PROVIDERS: ADMIT Internal Medicine; ATTEND Internal Medicine
DX: D62 Acute posthemorrhagic anemia (principal); K92.2 Gastrointestinal hemorrhage, unspecified; K25.7 Chronic gastric ulcer without hemorrhage or perforation; E03.9 Hypothyroidism, unspecified; J30.2 Other seasonal allergic rhinitis; E55.9 Vitamin D deficiency, unspecified; K44.9 Diaphragmatic hernia without obstruction or gangrene; K57.90 Diverticulosis of intestine, part unspecified, without perforation or abscess without bleeding; Z79.899 Other long term (current) drug therapy; Z91.81 History of falling; Z79.82 Long term (current) use of aspirin
CPT/HCPCS: 36415; 36430; 70450; 71045; 80048; 80076; 82550; 82553; 84484; 85025; 85027; 85610; 85730; 86850; 86900; 86901; 86920; 93005; 93041; 94760; 96361; 96374; 96375; 96376; 97161; 99285; C9113; G0378; J2405; P9016

== ENCOUNTER → 2018-09-06 | Outpatient (REF) | payer MEDICARE, MEDICAID ==
[~2018-09-06] MED LIST changes: +COLA100C5 PO; +FERR324T2 PO; +LEVA1TAB2 PO; +MOXI1TAB PO; +NEXI40CA PO; +OMEP40CA2 PO; +OSEL30CA PO; +PANT40TA3 PO
[2018-09-06 13:37] LABS: HEMATOCRIT 39.8 % (36.0-47.0); HEMOGLOBIN 12.3 g/dl (12.0-15.5); MEAN CORPUSCULAR HEMOGLOBIN 27.2 pg (27.0-33.0); MEAN CORPUSCULAR HGB CONC 30.9 g/dl (32.0-36.5); MEAN CORPUSCULAR VOLUME 87.9 fl (80.0-96.0); PLATELET COUNT, AUTOMATED 260 10^3/uL (150-450); RED BLOOD COUNT 4.53 10^6/uL (4.00-5.40); WHITE BLOOD COUNT 5.5 10^3/uL (4.0-10.0)
== END ==
LOC: M SFHCPLAZ 12:03
PROVIDERS: ATTEND Family Medicine
DX: D62 Acute posthemorrhagic anemia (principal)
CPT/HCPCS: 85027; 99495; G0463

== ENCOUNTER 2018-09-29 12:45 | Inpatient (IN) | payer MEDICARE, MEDICAID ==
[~2018-09-29] VITALS: Ht 157.5 cm; Wt 77.7 kg
[~2018-09-29 12:45] MED LIST changes: -LEVA1TAB2 PO; -MOXI1TAB PO; -OSEL30CA PO
[2018-09-29 13:15] LABS: BASO % 0.1 % (0.0-1.0); HEMATOCRIT 46.3 % (36.0-47.0); HEMOGLOBIN 14.9 g/dl (12.0-15.5); LYMPH # 0.3 10^3/uL (1.5-4.5); LYMPH % 3.9 % (24.0-44.0); MEAN CORPUSCULAR HEMOGLOBIN 28.6 pg (27.0-33.0); MEAN CORPUSCULAR HGB CONC 32.2 g/dl (32.0-36.5); MEAN CORPUSCULAR VOLUME 88.9 fl (80.0-96.0); MONO # 0.4 10^3/uL (0.0-0.8); MONO % 4.8 % (0.0-5.0); NEUTROPHILS % 90.7 % (36.0-66.0); PLATELET COUNT, AUTOMATED 164 10^3/uL (150-450); RED BLOOD COUNT 5.21 10^6/uL (4.00-5.40); WHITE BLOOD COUNT 8.8 10^3/uL (4.0-10.0)
[2018-09-29] MEDS ORDERED: ACETAMINOPHEN 325 MG TAB PO ONE (13:15)
[2018-09-29 13:25] LABS: INR 1.06; PROTHROMBIN TIME 13.9 SECONDS (12.1-14.4)
--- NOTE | 2018-09-29 13:31 | ECGEPIP ---
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
[2018-09-29 13:40] LABS: INFLUENZA A AMPLIFICATION POSITIVE (NEGATIVE); INFLUENZA B AMPLIFICATION NEGATIVE (NEGATIVE)
[2018-09-29] MEDS ORDERED: NEXI40CA PO (13:41)
[2018-09-29 13:46] LABS: ALBUMIN 3.4 GM/DL (3.2-5.2); ALT/SGPT 53 U/L (12-78); BILIRUBIN,DIRECT 0.3 MG/DL (0.0-0.2); BILIRUBIN,TOTAL 0.6 MG/DL (0.2-1.0); BLOOD UREA NITROGEN 15 MG/DL (7-18); CALCIUM LEVEL 8.1 MG/DL (8.8-10.2); CARBON DIOXIDE LEVEL 23 MEQ/L (21-32); CHLORIDE LEVEL 105 MEQ/L (98-107); CPK CREATINE PHOSPHOKINASE 267 U/L (26-192); CREATININE FOR GFR 0.89 MG/DL (0.55-1.30); GLOMERULAR FILTRATION RATE > 60.0 (>32); GLUCOSE, FASTING 143 MG/DL (70-100); LIPASE 380 U/L (73-393); MB/CK RELATIVE INDEX 0.45 (< OR =4); POTASSIUM SERUM 3.3 MEQ/L (3.5-5.1); SODIUM LEVEL 137 MEQ/L (136-145); TOTAL PROTEIN 7.1 GM/DL (6.4-8.2); TROPONIN I < 0.02 NG/ML (< 0.10)
--- NOTE | 2018-09-29 13:47 | REP ---
Clinical: Cough. Comparison: 08/25/2018. Findings: Left lower lobe infiltrate compatible with acute pneumonia. Trace right basilar atelectasis cannot be excluded. Large hiatal hernia remains stable. The cardiac silhouette and mediastinum are otherwise normal. No pneumothorax. Skeletal structures intact. Impression: Left lower lobe pneumonia and mild right basilar atelectasis. Electronically Signed by Gurvinder Villa MD 09/29/2018 01:38 P
[2018-09-29] MEDS ORDERED: LORATADINE 10 MG TAB PO PRN (14:00)
[2018-09-29] MEDS ORDERED: OSELTAMIVIR PHOSPHATE 75 MG CAP (TAMIFLU) PO ONE (14:00)
[2018-09-29] MEDS ORDERED: ACETAMINOPHEN TAB 650MG DOSE (2X325MG) PO PRN (14:00)
[2018-09-29] MEDS: NS 1,000 ML IV SCH (14:27)
[2018-09-29] MEDS: cefTRIAXone SOD 1 GM in D5W MINI-BAG PLUS 50 ML IV SCH (14:27)
[2018-09-29] MEDS ORDERED: POTASSIUM CHLORIDE 10 MEQ SR TABLET PO ONE (14:30)
[2018-09-29 15:00] VITALS: BP 117/65
--- NOTE | 2018-09-29 15:58 | HPE ---
DATE OF ADMISSION: 09/29/2018 An 82-year-old female with a past medical history of hypothyroidism, history of gastrointestinal (GI) bleed, presents to the emergency room with chief complaint of possible lower GI bleed. She says she noticed that she had black, tarry stools for the last few days. Asymptomatic but was worried, so she came to the emergency room (ER) for evaluation. In the ER, she wound up only having black-green colored stools and trace guaiac positive; however, she did mention that in the last 24 hours she has had severe body aches and chills and a dry cough, so a chest x-ray was done, which showed a left lower lobe pneumonia. The patient was febrile at 100.2. Flu swab came back also positive for flu A. The patient was started on Tamiflu and intravenous (IV) Rocephin and Zithromax and started on IV fluids. She is also hypoxic at 85% on room air but is now doing well at 96% on 4 liters nasal cannula. She is a lifetime nonsmoker. She will be admitted for further management. PAST MEDICAL HISTORY: 1. Hypothyroidism. 2. Seasonal allergies. 3. History of GI bleed in the past. PAST SURGICAL HISTORY: 1. Hysterectomy. 2. Left foot and ankle surgery. DRUG ALLERGIES: No known drug allergies. FAMILY HISTORY: Noncontributory. SOCIAL HISTORY: Patient denies tobacco, alcohol, or illicit drugs. HOME MEDICATIONS: - Colace 100 mg orally daily - omeprazole 40 mg orally daily - iron sulfate 325 mg orally at bedtime - Synthroid 75 mcg orally daily - loratadine 10 mg orally daily - oyster shell calcium 500 mg orally twice daily REVIEW OF SYSTEMS: Negative for [id number] systems except what is mentioned in the history of present illness (HPI). PHYSICAL EXAMINATION: VITAL SIGNS: Blood pressure is 137, 74, heart rate 80 and regular, respiratory rate is 22, temperature is 100.2, oxygen saturation is 96% on 4 liters nasal cannula. HEAD: Atraumatic, normocephalic. Dry mucous membranes noted. NECK: Supple. No jugular venous distention (JVD). LUNGS: Scattered rhonchi. HEART: S1, S2 audible. No murmurs appreciated. ABDOMEN: Soft. Positive bowel sounds. No pedal edema. SKIN: Intact. NEUROLOGIC: Patient awake, alert, oriented times three. LABORATORY DATA: WBC 8.8, hemoglobin 14.9, hematocrit 46.3, platelets are 164,000. Sodium 137, potassium 3.3, chloride 105, CO2 of 23, BUN 15, creatinine 0.89, lactic acid 1.9, glucose 143. Lipase is 380. Flu A positive. IMPRESSION: 1. Community-acquired pneumonia. 2. Influenza A. 3. Hypokalemia. PLAN: Patient will be admitted to the medical/surgical floor. Will replete the potassium and continue the patient on oral Tamiflu 75 mg orally twice daily and will continue the patient on IV Rocephin and Zithromax. If possible, will get a sputum culture. Will hydrate her with normal saline 100 mL an hour and will get morning labs. Will also continue her preadmission medications and continue her care on the medical/surgical floor.
[2018-09-29] MEDS: AZITHROMYCIN INJ 500 MG, VIAL MATE ADAPTER 1 EACH in D5W 250 ML IV SCH (16:28)
[2018-09-29] MEDS: LACTOBACILLUS ACIDOPHILUS CAP (BACID) PO SCH ×2 (16:28→20:04)
[2018-09-29] MEDS: OSELTAMIVIR PHOSPHATE 30MG CAPSULE PO SCH (20:04)
[2018-09-29] MEDS: OYSTER SHELL CALCIUM 500 MG TAB PO SCH (20:04)
[2018-09-29 22:00] VITALS: BP 130/68
[2018-09-30] MEDS: NS 1,000 ML IV SCH (04:22)
[2018-09-30] MEDS: LEVOTHYROXINE 75MCG TABLET (0.075MG) PO SCH (05:32)
[2018-09-30 06:00] VITALS: BP 104/58
[2018-09-30 06:44] LABS: BASO % 0.3 % (0.0-1.0); EOS % 0.1 % (0.0-3.0); HEMATOCRIT 39.7 % (36.0-47.0); LYMPH # 0.5 10^3/uL (1.5-4.5); LYMPH % 5.1 % (24.0-44.0); MEAN CORPUSCULAR HEMOGLOBIN 28.1 pg (27.0-33.0); MEAN CORPUSCULAR HGB CONC 31.2 g/dl (32.0-36.5); MEAN CORPUSCULAR VOLUME 89.8 fl (80.0-96.0); MONO # 0.7 10^3/uL (0.0-0.8); MONO % 6.8 % (0.0-5.0); NEUTROPHILS # 8.9 10^3/uL (1.8-7.7); PLATELET COUNT, AUTOMATED 146 10^3/uL (150-450); RED BLOOD COUNT 4.42 10^6/uL (4.00-5.40); WHITE BLOOD COUNT 10.3 10^3/uL (4.0-10.0)
[2018-09-30 06:48] LABS: HEMOGLOBIN 12.4 g/dl (12.0-15.5)
[2018-09-30 07:13] LABS: CALCIUM LEVEL 7.8 MG/DL (8.8-10.2); CREATININE FOR GFR 0.97 MG/DL (0.55-1.30); GLOMERULAR FILTRATION RATE 58.5 (>32); POTASSIUM SERUM 4.3 MEQ/L (3.5-5.1)
[2018-09-30] MEDS: PANTOPRAZOLE 40MG TAB (PROTONIX) PO SCH (08:37)
[2018-09-30] MEDS: LACTOBACILLUS ACIDOPHILUS CAP (BACID) PO SCH ×3 (08:37→20:45)
[2018-09-30] MEDS: OSELTAMIVIR PHOSPHATE 30MG CAPSULE PO SCH ×2 (08:37→20:45)
[2018-09-30] MEDS: OYSTER SHELL CALCIUM 500 MG TAB PO SCH ×2 (08:37→20:45)
[2018-09-30 14:00] VITALS: BP 123/75
--- NOTE | 2018-09-30 14:31 | IPNPDOC ---
Text Note Date of Service The patient was seen on 09/30/18. NOTE Subjective: patient seen at bedside this am. Complains of some SOB. DId not have any black tarry stools, Also has body aches. She says that she will be going back to [place] on october 17 where she is originally form. PHYSICAL EXAMINATION: VITAL SIGNS:As below HEAD: Atraumatic, normocephalic. Dry mucous membranes noted. NECK: Supple. No jugular venous distention (JVD). LUNGS: Scattered bilateral rhonchi. Coarse breath sounds. HEART: S1, S2 audible. No murmurs appreciated. ABDOMEN: Soft. Positive bowel sounds. No pedal edema. SKIN: Intact. NEUROLOGIC: Patient awake, alert, oriented times three. Labs and radiology : reviewed Assessment and Plan: An 82-year-old female with a past medical history of hypothyroidism,Seasonal allergies, hiatal hernia history of recurrent gastrointestinal (GI) bleeds due to [place] Ulcers, Diverticulosis, internal hemorrhoids presents to the emergency room with chief complaint of possible lower GI bleed. She says she noticed that she had black, tarry stools for the last few days. Asymptomatic but was worried, so she came to the emergency room (ER) for evaluation. In the ER, she wound up only having black-green colored stools and trace guaiac positive; however, she did mention that in the last 24 hours she has had severe body aches and chills and a dry cough, so a chest x-ray was done, which showed a left lower lobe pneumonia. The patient was febrile at 100.2. Flu swab came back also positive for flu A. The patient was started on Tamiflu and intravenous (IV) Rocephin and Zithromax and started on IV fluids. She is also hypoxic at 85% on room air but is now doing well at 96% on 4 liters nasal cannula. She is a lifetime nonsmoker. She was admitted for CAP, influenza A, Hypoxia. Hypoxia due to bronchospasm form influenza with super added pneumonia. Influenza A continue Tamiflu and supportive management Continue Nebs Community acquired pneumonia continue ceftriaxone and azithromycin. History of recurrent GIBs She underwent EGD and colonoscopy Showed large hiatal hernia, a Fabian erosion, diverticulosis, and internal hemorrhoids No bleeding at present. continue iron Hypothyroid continue synthroid Hiatal hernia continue PPI DVT prophylaxis ordered. VS,Fishbone, I+O VS, Fishbone, I+O Laboratory Tests 09/29/18 13:03 Red Blood Count 5.21, Mean Corpuscular Volume 88.9, Mean Corpuscular Hemoglobin 28.6, Mean Corpuscular Hemoglobin Concent 32.2, Red Cell Distribution Width 18.8 H, Neutrophils (%) (Auto) 90.7 H, Lymphocytes (%) (Auto) 3.9 L, Monocytes (%) (Auto) 4.8, Eosinophils (%) (Auto) 0.0, Basophils (%) (Auto) 0.1, Neutrophils # (Auto) 8.0 H, Lymphocytes # (Auto) 0.3 L, Monocytes # (Auto) 0.4, Eosinophils # (Auto) 0.0, Basophils # (Auto) 0.0 Vital Signs Date Time Temp Pulse Resp B/P (MAP) Pulse Ox O2 Delivery O2 Flow Rate FiO2 09/29/18 22:00 98.9 83 28 130/68 (88) 95 4.0 09/29/18 14:45 Nasal Cannula I&O- Last 24 Hours up to 6 AM 09/30/18 06:00 Intake Total 1708 ml Output Total 75 ml Balance 1633 ml MAXIMO ROSENTHAL MD Sep 30, 2018 06:12
[2018-09-30] MEDS: cefTRIAXone SOD 1 GM in D5W MINI-BAG PLUS 50 ML IV SCH (14:44)
[2018-09-30] MEDS: ALBUTEROL SULFATE 2.5 MG/0.5 ML INH NEB SOLN NEB SCH ×2 (14:59→20:31)
[2018-09-30] MEDS: AZITHROMYCIN INJ 500 MG, VIAL MATE ADAPTER 1 EACH in D5W 250 ML IV SCH (15:34)
[2018-09-30] MEDS: BUDESONIDE 0.25 MG/2 ML INHALATION SUSPENSION INH SCH (20:31)
[2018-09-30 22:00] VITALS: BP 127/65
[2018-10-01] MEDS: LEVOTHYROXINE 75MCG TABLET (0.075MG) PO SCH (05:02)
[2018-10-01 06:00] VITALS: BP 131/74
[2018-10-01 06:36] LABS: BASO % 0.3 % (0.0-1.0); EOS % 0.7 % (0.0-3.0); HEMATOCRIT 38.6 % (36.0-47.0); HEMOGLOBIN 12.1 g/dl (12.0-15.5); LYMPH # 0.6 10^3/uL (1.5-4.5); LYMPH % 9.4 % (24.0-44.0); MEAN CORPUSCULAR HEMOGLOBIN 28.3 pg (27.0-33.0); MEAN CORPUSCULAR HGB CONC 31.3 g/dl (32.0-36.5); MEAN CORPUSCULAR VOLUME 90.4 fl (80.0-96.0); MONO # 0.5 10^3/uL (0.0-0.8); MONO % 8.9 % (0.0-5.0); NEUTROPHILS # 4.8 10^3/uL (1.8-7.7); NEUTROPHILS % 80.4 % (36.0-66.0); PLATELET COUNT, AUTOMATED 153 10^3/uL (150-450); RED BLOOD COUNT 4.27 10^6/uL (4.00-5.40)
[2018-10-01 06:59] LABS: BLOOD UREA NITROGEN 17 MG/DL (7-18); CARBON DIOXIDE LEVEL 27 MEQ/L (21-32); CHLORIDE LEVEL 108 MEQ/L (98-107); CREATININE FOR GFR 0.91 MG/DL (0.55-1.30); GLOMERULAR FILTRATION RATE > 60.0 (>32); GLUCOSE, FASTING 93 MG/DL (70-100); POTASSIUM SERUM 4.1 MEQ/L (3.5-5.1); SODIUM LEVEL 140 MEQ/L (136-145)
[2018-10-01] MEDS: BUDESONIDE 0.25 MG/2 ML INHALATION SUSPENSION INH SCH ×2 (07:15→20:35)
[2018-10-01] MEDS: ALBUTEROL SULFATE 2.5 MG/0.5 ML INH NEB SOLN NEB SCH ×3 (07:15→20:35)
[2018-10-01] MEDS: OSELTAMIVIR PHOSPHATE 30MG CAPSULE PO SCH ×2 (08:12→21:55)
[2018-10-01] MEDS: PANTOPRAZOLE 40MG TAB (PROTONIX) PO SCH (08:12)
[2018-10-01] MEDS: OYSTER SHELL CALCIUM 500 MG TAB PO SCH ×2 (08:12→21:55)
[2018-10-01] MEDS: LACTOBACILLUS ACIDOPHILUS CAP (BACID) PO SCH ×3 (08:12→21:55)
--- NOTE | 2018-10-01 13:40 | IPNPDOC ---
Text Note Date of Service The patient was seen on 10/01/18. NOTE Subjective: Patient seen at bedside this am. Had several loose stools overnight but they were not tarry. SO now she also has soreness at the bottom from the diarrhea. Continues to have wheezing and cough denies SOB. No fever or chills, denies abdominal pain , nausea or vomiting or diarrhea. She says that she will be going back to [place] on october 17 where she is originally form. PHYSICAL EXAMINATION: VITAL SIGNS:As below HEAD: Atraumatic, normocephalic. Dry mucous membranes noted. NECK: Supple. No jugular venous distention (JVD). LUNGS: Scattered bilateral rhonchi and wheezing. Coarse breath sounds. HEART: S1, S2 audible. No murmurs appreciated. ABDOMEN: Soft. Positive bowel sounds. No pedal edema. SKIN: Intact. NEUROLOGIC: Patient awake, alert, oriented times three. Labs and radiology : reviewed Assessment and Plan: An 82-year-old female with a past medical history of hypothyroidism,Seasonal allergies, hiatal hernia history of recurrent gastrointestinal (GI) bleeds due to [place] Ulcers, Diverticulosis, internal hemorrhoids presents to the emergency room with chief complaint of possible lower GI bleed. She says she noticed that she had black, tarry st ools for the last few days. Asymptomatic but was worried, so she came to the emergency room (ER) for evaluation. In the ER, she wound up only having black-green colored stools and trace guaiac positive; however, she did mention that in the last 24 hours she has had severe body aches and chills and a dry cough, so a chest x-ray was done, which showed a left lower lobe pneumonia. The patient was febrile at 100.2. Flu swab came back also positive for flu A. The patient was started on Tamiflu and intravenous (IV) Rocephin and Zithromax and started on IV fluids. She is also hypoxic at 85% on room air but is now doing well at 96% on 4 liters nasal cannula. She is a lifetime nonsmoker. She was admitted for CAP, influenza A, Hypoxia. Hypoxia due to bronchospasm form influenza with super added pneumonia. Influenza A continue Tamiflu and supportive management Continue Nebs Community acquired pneumonia vs secondary bacterial pneumonia super added on influenza A continue ceftriaxone and azithromycin. History of recurrent GIBs She underwent EGD and colonoscopy Showed large hiatal hernia, a Fabian erosion, diverticulosis, and internal hemorrhoids No bleeding at present. though contiues to complain of loose stools. continue iron Hypothyroid continue synthroid Hiatal hernia continue PPI DVT prophylaxis ordered. VS,Fishbone, I+O VS, Fishbone, I+O Laboratory Tests 10/01/18 06:12 Red Blood Count 4.27, Mean Corpuscular Volume 90.4, Mean Corpuscular Hemoglobin 28.3, Mean Corpuscular Hemoglobin Concent 31.3 L, Red Cell Distribution Width 19.0 H, Neutrophils (%) (Auto) 80.4 H, Lymphocytes (%) (Auto) 9.4 L, Monocytes (%) (Auto) 8.9 H, Eosinophils (%) (Auto) 0.7, Basophils (%) (Auto) 0.3, Neutrophils # (Auto) 4.8, Lymphocytes # (Auto) 0.6 L, Monocytes # (Auto) 0.5, Eosinophils # (Auto) 0.0, Basophils # (Auto) 0.0, Calcium Level 8.0 L Vital Signs Date Time Temp Pulse Resp B/P (MAP) Pulse Ox O2 Delivery O2 Flow Rate FiO2 10/01/18 06:00 97.5 69 22 131/74 (93) 96 09/30/18 21:00 2.0 09/29/18 14:45 Nasal Cannula I&O- Last 24 Hours up to 6 AM 10/01/18 06:00 Intake Total 1680 ml Output Total 1050 ml Balance 630 ml MAXIMO ROSENTHAL MD Oct 01, 2018 13:40
[2018-10-01 14:00] VITALS: BP 122/77
[2018-10-01] MEDS: AZITHROMYCIN INJ 500 MG, VIAL MATE ADAPTER 1 EACH in D5W 250 ML IV SCH (15:43)
[2018-10-01] MEDS: cefTRIAXone SOD 1 GM in D5W MINI-BAG PLUS 50 ML IV SCH (15:43)
[2018-10-01 22:00] VITALS: BP 128/76
[2018-10-02] MEDS: LEVOTHYROXINE 75MCG TABLET (0.075MG) PO SCH (05:32)
[2018-10-02 06:00] VITALS: BP 140/81
[2018-10-02 06:54] LABS: BASO % 0.5 % (0.0-1.0); EOS # 0.1 10^3/uL (0.0-0.50); EOS % 2.4 % (0.0-3.0); HEMATOCRIT 37.3 % (36.0-47.0); LYMPH # 0.7 10^3/uL (1.5-4.5); LYMPH % 17.8 % (24.0-44.0); MEAN CORPUSCULAR HEMOGLOBIN 28.7 pg (27.0-33.0); MEAN CORPUSCULAR HGB CONC 32.2 g/dl (32.0-36.5); MEAN CORPUSCULAR VOLUME 89.2 fl (80.0-96.0); MONO # 0.5 10^3/uL (0.0-0.8); NEUTROPHILS # 2.6 10^3/uL (1.8-7.7); NEUTROPHILS % 66.8 % (36.0-66.0); PLATELET COUNT, AUTOMATED 172 10^3/uL (150-450); RED BLOOD COUNT 4.18 10^6/uL (4.00-5.40); WHITE BLOOD COUNT 3.8 10^3/uL (4.0-10.0)
[2018-10-02] MEDS: ALBUTEROL SULFATE 2.5 MG/0.5 ML INH NEB SOLN NEB SCH (07:08)
[2018-10-02] MEDS: BUDESONIDE 0.25 MG/2 ML INHALATION SUSPENSION INH SCH (07:08)
[2018-10-02 07:19] LABS: BLOOD UREA NITROGEN 13 MG/DL (7-18); CALCIUM LEVEL 8.4 MG/DL (8.8-10.2); CARBON DIOXIDE LEVEL 28 MEQ/L (21-32); CHLORIDE LEVEL 108 MEQ/L (98-107); GLOMERULAR FILTRATION RATE > 60.0 (>32); GLUCOSE, FASTING 94 MG/DL (70-100); POTASSIUM SERUM 3.9 MEQ/L (3.5-5.1); SODIUM LEVEL 141 MEQ/L (136-145)
[2018-10-02] MEDS ORDERED: MOXI1TAB PO (08:10)
[2018-10-02] MEDS ORDERED: OSEL30CA PO (08:10)
--- NOTE | 2018-10-02 08:12 | IPNPDOC ---
Date Seen The patient was seen on 10/02/18. Progress Note Subjective: Patient seen at bedside this am. Had ONE LOOSE STOOL overnight but they were not tarry. Hemoglobin unchanged at 12 since admission. SO now she also has soreness at the bottom from the diarrhea. Continues to have wheezing despite budesonide and cough denies SOB. No fever or chills, denies abdominal pain , nausea or vomiting or diarrhea. She says that she will be going back to [place] on october 17 where she is originally form. physical therapy has been consulted. pulse ox on room air pending. still on 2liters oxygen. PHYSICAL EXAMINATION: VITAL SIGNS:As below HEAD: Atraumatic, normocephalic. Dry mucous membranes noted. NECK: Supple. No jugular venous distention (JVD). LUNGS: Scattered bilateral rhonchi and wheezing. Coarse breath sounds. HEART: S1, S2 audible. No murmurs appreciated. ABDOMEN: Soft. Positive bowel sounds. No pedal edema. SKIN: Intact. NEUROLOGIC: Patient awake, alert, oriented times three. Labs and radiology : reviewed Assessment and Plan: An 82-year-old female with a past medical history of hypothyroidism,Seasonal allergies, hiatal hernia history of recurrent gastrointestinal (GI) bleeds due to [place] Ulcers, Diverticulosis, internal hemorrhoids presents to the emergency room with chief complaint of possible lower GI bleed. She says she noticed that she had black, tarry stools for the last few days. Asymptomatic but was worried, so she came to the emergency room (ER) for evaluation. In the ER, she wound up only having black- green colored stools and trace guaiac positive; however, she did mention that in the last 24hours she has had severe body aches and chills and a dry cough, so a chest x-ray was done, which showed a left lower lobe pneumonia. The patient was febrile at100.2. Flu swab came back also positive for flu A. The patient was started on Tamiflu and intravenous (IV) Rocephin and Zithromax and started on IV fluids. She is also hypoxic at 85% on room air but is now doing well at 96% on 4 liters nasal cannula. She is a lifetime nonsmoker. She was admitted for CAP, influenza A, Hypoxia. Hypoxia due to bronchospasm form influenza with super added pneumonia. Influenza A continue Tamiflu and supportive management Continue Nebs Community acquired pneumonia vs secondary bacterial pneumonia super added on influenza A continue ceftriaxone and azithromycin. change to po avelox to complete 7 day course History of recurrent GIBs She underwent EGD and colonoscopy Showed large hiatal hernia, a Fabian erosion, diverticulosis, and internal hemorrhoids No bleeding at present. though contiues to complain of loose stools. continue iron Hypothyroid continue synthroid Hiatal hernia continue PPI DVT prophylaxis ordered. disposition:dc home if cleared by physical therapy VS, I&O, [facility]ital Signs/I&O Vital Signs Date Time Temp Pulse Resp B/P (MAP) Pulse Ox O2 Delivery O2 Flow Rate FiO2 10/02/18 06:00 96.5 65 20 140/81 (100) 96 09/30/18 21:00 2.0 09/29/18 14:45 Nasal Cannula I&O- Last 24 Hours up to 6 AM 10/02/18 06:00 Intake Total 1325 ml Output Total 1850 ml Balance -525 ml Laboratory Data 24H LABS Laboratory Tests 2 10/02/18 06:39: Immature Granulocyte % (Auto) 0.5, White Blood Count 3.8L, Red Blood Count 4.18, Hemoglobin 12.0, Hematocrit 37.3, Mean Corpuscular Volume 89.2, Mean Corpuscular Hemoglobin 28.7, Mean Corpuscular Hemoglobin Concent 32.2, Red Cell Distribution Width 18.7H, Platelet Count 172, Neutrophils (%) (Auto) 66.8H, Lymphocytes (%) (Auto) 17.8L, Monocytes (%) (Auto) 12.0H, Eosinophils (%) (Auto) 2.4, Basophils (%) (Auto) 0.5, Neutrophils # (Auto) 2.6, Lymphocytes # (Auto) 0.7L, Monocytes # (Auto) 0.5, Eosinophils # (Auto) 0.1, Basophils # (Auto) 0.0, Nucleated Red Blood Cells % (auto) 0.0, Anion Gap 5L, Glomerular Filtration Rate > 60.0, Blood Urea Nitrogen 13, Creatinine 0.80, Sodium Level 141, Potassium Level 3.9, Chloride Level 108H, Carbon Dioxide Level 28, Calcium Level 8.4L CBC/BMP Laboratory Tests 10/02/18 06:39 Red Blood Count 4.18, Mean Corpuscular Volume 89.2, Mean Corpuscular Hemoglobin 28.7, Mean Corpuscular Hemoglobin Concent 32.2, Red Cell Distribution Width 18.7 H, Neutrophils (%) (Auto) 66.8 H, Lymphocytes (%) (Auto) 17.8 L, Monocytes (%) (Auto) 12.0 H, Eosinophils (%) (Auto) 2.4, Basophils (%) (Auto) 0.5, Neutrophils # (Auto) 2.6, Lymphocytes # (Auto) 0.7 L, Monocytes # (Auto) 0.5, Eosinophils # (Auto) 0.1, Basophils # (Auto) 0.0, Calcium Level 8.4 L Microbiology Microbiology 09/29/18 Blood Culture - Preliminary, Resulted No Growth after 48 hours. All Specime... 09/29/18 Blood Culture - Preliminary, Resulted No Growth after 48 hours. All Specime... JESSICA MARTINEZ MD Oct 02, 2018 08:00
[2018-10-02] MEDS: PANTOPRAZOLE 40MG TAB (PROTONIX) PO SCH (08:44)
[2018-10-02] MEDS: OSELTAMIVIR PHOSPHATE 30MG CAPSULE PO SCH (08:44)
[2018-10-02] MEDS: OYSTER SHELL CALCIUM 500 MG TAB PO SCH (08:44)
[2018-10-02] MEDS: LACTOBACILLUS ACIDOPHILUS CAP (BACID) PO SCH (08:44)
[2018-10-02] MEDS ORDERED: DOCUSATE SODIUM 100 MG CAP PO SCH (09:00)
[2018-10-02] MEDS ORDERED: LEVA1TAB2 PO (10:31)
[2018-10-02] MEDS ORDERED: LevoFLOXacin 500 MG TABLET PO ONE (10:45)
== END 2018-10-02 12:50 | disposition home or self-care (01) | DRG 195 ==
LOC: M ED 12:45 → EDBD 12:45 → M ED INP 13:58 → M MS5PR 15:20
PROVIDERS: ADMIT Internal Medicine; ATTEND General Practice
DX: J10.08 Influenza due to other identified influenza virus with other specified pneumonia (principal); J18.1 Lobar pneumonia, unspecified organism; E03.9 Hypothyroidism, unspecified; E87.6 Hypokalemia; K44.9 Diaphragmatic hernia without obstruction or gangrene; K57.90 Diverticulosis of intestine, part unspecified, without perforation or abscess without bleeding; K64.8 Other hemorrhoids; R09.02 Hypoxemia; J30.2 Other seasonal allergic rhinitis; Z79.899 Other long term (current) drug therapy